=== PATIENT | male | born 1970 | race Caucasian/White ===

== ENCOUNTER 2019-11-27 06:00 | Emergency (ER) | payer OTHER, SELFPAY ==
[2019-11-27 06:04] VITALS: BP 175/106; PULSE 77; RESP 22; TEMP 36.8; O2SAT 97
--- NOTE | 2019-11-27 06:05 | ED.GENADULT ---
HPI - General Adult General Chief complaint: Nausea/Vomiting/Diarrhea <Alissa Mark MD - Last Filed: 11/27/19 07:02> Stated complaint: n/v <Alissa Mark MD - Last Filed: 11/27/19 07:02> Time Seen by Provider: 11/27/19 06:05 <Alissa Mark MD - Last Filed: 11/27/19 07:02> Source: patient <Alissa Mark MD - Last Filed: 11/27/19 07:02> Mode of arrival: ambulatory <Alissa Mark MD - Last Filed: 11/27/19 07:02> Limitations: no limitations <Alissa Mark MD - Last Filed: 11/27/19 07:02> History of Present Illness HPI narrative: Patient is a 49-year-old male who presents for evaluation of nausea and vomiting. Patient reports he has had a 24-hour history of worsening nausea with numerous episodes of nonbloody, nonbilious emesis throughout the day yesterday and into tonight. Patient has been unable to tolerate any oral intake for 24 hours. He reports chills without fever. He reports myalgias. He reports diffuse, mild abdominal pain that is not specifically worse in any area of the abdomen. He denies diarrhea, states that he has been mildly constipated. No abdominal distention. Patient reports he has a history of this, states he becomes severely dehydrated about twice a year pretty regularly. He has Zofran at home, but has been unable to tolerate oral intake despite taking the dissolvable Zofran tablets. No sick contacts at home. Patient has been working, but is isolated from sick contacts and has almost no daily contacts at work. <Alissa Mark MD - Last Filed: 11/27/19 07:02> Related Data Allergies/adverse reactions: Allergies Allergy/AdvReac Type Severity Reaction Status Date / Time No Known Allergies Allergy Unverified 06/05/19 23:24 <Alissa Mark MD - Last Filed: 11/27/19 07:02> Review of Systems Review of Systems: Narrative: CONSTITUTIONAL: Denies fever, chills, or sweats. EYES: Denies visual changes, redness, or discharge. ENT: Denies rhinorrhea, congestion, sore throat, or otalgia. CARDIOVASCULAR: Denies chest pain, palpitations, or edema. RESPIRATORY: Denies cough or dyspnea. GASTROINTESTINAL: Reports abdominal pain, nausea, and vomiting, denies diarrhea GENITOURINARY: Denies dysuria or hematuria. SKIN: Denies rash or itching. MUSCULOSKELETAL: Denies back pain, joint pain, or myalgia. NEUROLOGIC: Reports mild headache, denies numbness, reports feeling mildly weak, no focal weakness <Alissa Mark MD - Last Filed: 11/27/19 07:02> [facility] Past Medical History Medical History: Medical History (Updated 11/27/19 @ 07:02 by Alissa Mark MD) Gout Osteoarthritis <Alissa Mark MD - Last Filed: 11/27/19 07:02> Surgical History Surgical History: Surgical History (Updated 11/27/19 @ 06:18 by Alissa Mark MD) H/O arthroscopic knee surgery <Alissa Mark MD - Last Filed: 11/27/19 07:02> Social History Social History: Social History (Updated 11/27/19 @ 06:21 by Alissa Mark MD) Smoking status: Former smoker Alcohol intake: never Substance use: never Living arrangements: with family Gender identity (if verbalized by the patient): Male <Alissa Mark MD - Last Filed: 11/27/19 07:02> Exam Narrative: Exam Narrative: GENERAL: Awake, alert, conversant HEAD: Normocephalic, atraumatic. EYES: PERRLA and EOMI. ENT: Nares clear, no rhinorrhea or epistaxis. Mucous membranes dry NECK: Supple. CHEST: No respiratory distress, breathing even and non labored HEART: Regular rate, sinus rhythm ABDOMEN:Non distended, mild tenderness throughout the abdomen, nonrigid, no guarding, no rebound EXTREMITIES: Normal range of motion. No edema. SKIN: Warm, dry, no rash. NEURO:No focal deficits. Alert and oriented x3 <Alissa Mark MD - Last Filed: 11/27/19 07:02> Course Course Emergency Course: Patient presented for evaluation of intractable nausea and vomiting which he has had in
[2019-11-27] MEDS: SODIUM CHLORIDE 0.9% IV 1,000 ML 999 ML IV CONT ×2 (06:26→06:36)
[2019-11-27 06:28] LABS: Basophils Percent Auto 0.1 % (0.2-1.2); Hematocrit 46.8 % (42.0-52.0); Hemoglobin 16.5 g/dL (14.0-18.0); Immature Granulocyte Absolute 0.02 K/mm3 (0.00-0.031); Immature Granulocyte Percent A 0.2 % (0-0.5); Lymphocytes Absolute Auto 0.75 K/mm3 (0.9-3.2); Mean Corpuscular HGB Conc 35.3 g/dl (32-36); Mean Corpuscular Hemoglobin 31.3 pg (26-34); Mean Corpuscular Volume 88.6 fl (80-100); Mean Platelet Volume 10.7 fl (7.4-10.4); Monocytes Absolute Auto 0.3 K/mm3 (0.1-0.6); Monocytes Percent Auto 3.7 % (2.6-8.5); Neutrophils Absolute Auto 7.3 K/mm3 (1.3-6.7); Platelet Count Result 242 k/mm3 (150-375); Red Blood Count 5.28 M/mm3 (4.6-6.20); Red Cell Distribution Width 12.2 % (11.5-14.5); White Blood Count 8.4 K/mm3 (4.5-10.0)
[2019-11-27] MEDS: METOCLOPRAMIDE HCL INJ 10 MG/2 ML VIAL IV PUSH (06:28)
[2019-11-27 06:40] LABS: Alanine Aminotransferase 17 U/L (4-50); Albumin Level 4.8 g/dL (3.5-5.1); Alkaline Phosphatase 101 U/L (38-126); Aspartate Amino Transferase 25 U/L (17-59); Blood Urea Nitrogen 24 mg/dL (9-20); Calcium 9.7 mg/dL (8.4-10.2); Carbon Dioxide 29 mmol/L (22-30); Chloride 98 mmol/L (98-107); Estimated CRCL calculation 78 ml/min; Estimated Glomerular Filt Rate > 60; Glucose 130 mg/dL (75-110); Lipase 432 U/L (23-300); Potassium 3.9 mmol/L (3.4-5.0); Sodium 136 mmol/L (137-145)
[2019-11-27 07:01] VITALS: BP 139/71; PULSE 71; RESP 17; O2SAT 97
--- NOTE | 2019-11-27 07:07 | PC.NURSE ---
Assumed pt care from MARY Roberto at this time, pt resting in bed, call light at bedside, A&OX3, VSS in no aparent distress. Pt reminded of need for urine sample, refusing cath at this time, urinal placed on bed rail.
[2019-11-27 07:27] LABS: Add Urine Microscopic? YES; Appearance Urine Clear (Clear); Bacteria Urine Trace /hpf; Bilirubin Urine 1+ (Negative); Blood Urine Negative (Negative); Color Urine Yellow (Yellow); Glucose Urine UA Negative (Negative); Hyaline Casts Urine 30-49 /lpf; Ketones Urine 1+ mg/dL (Negative); Leukocyte Esterase Ur Negative LEU/UL (Negative); Mucus Urine Heavy /lpf; Nitrate Urine Negative (Negative); Protein Urine 2+ mg/dL (Negative); Squamous Epithelial Cell Urine Rare /hpf (Few); Urobilinogen Urine Negative mg/dL (<2.0)
[2019-11-27 07:28] LABS: Specific Grav Ur 1.036 (1.001-1.035)
--- NOTE | 2019-11-27 07:49 | PC.NURSE ---
pt provided with applesauce and sprite for po challenge at the request of PANCHO Duke. Pt states that he is feeling better and is no longer nauseated.
--- NOTE | 2019-11-27 08:04 | PC.NURSE ---
Rounded on pt, he states that he is feeling better, denies any nausea after eating some applesauce and a light soda. ERP Srikanth aware. No new orders. ERP at pt bedside at this time for pt update.
[2019-11-27 08:05] VITALS: BP 150/94; PULSE 75; RESP 18; O2SAT 100
[2019-11-27 08:15] VITALS: BP 150/94; PULSE 78; RESP 16; O2SAT 100
== END 2019-11-27 08:16 | disposition home or self-care (01) ==
PROVIDERS: Emergency Medicine; Emergency Provider Emergency Medicine; PCP Internal Medicine
DX: R11.2 Nausea with vomiting, unspecified (principal); E86.0 Dehydration; M10.9 Gout, unspecified; M19.90 Unspecified osteoarthritis, unspecified site; Z87.891 Personal history of nicotine dependence
CPT/HCPCS: 36415; 80053; 81001; 83690; 85025; 87086; 96361; 96374; 96375; 99284; J0131; J2765; J7030

== ENCOUNTER 2020-10-12 23:48 | Emergency (ER) | payer OTHER, SELFPAY ==
[2020-10-12 23:51] VITALS: BP 191/98; PULSE 94; RESP 18; TEMP 36.9; O2SAT 97
--- NOTE | 2020-10-13 00:11 | PC.NURSE ---
pt states he isnt able to urinate at this time.
[2020-10-13 00:15] LABS: Basophils Percent Auto 0.1 % (0.2-1.2); Hematocrit 44.6 % (42.0-52.0); Hemoglobin 15.6 g/dL (14.0-18.0); Immature Granulocyte Absolute 0.02 K/mm3 (0.00-0.031); Immature Granulocyte Percent A 0.2 % (0-0.5); Lymphocytes Absolute Auto 0.57 K/mm3 (0.9-3.2); Lymphocytes Percent Auto 6.9 % (18.3-44.2); Mean Corpuscular Hemoglobin 31.3 pg (26-34); Mean Corpuscular Volume 89.4 fl (80-100); Mean Platelet Volume 10.3 fl (7.4-10.4); Monocytes Absolute Auto 0.2 K/mm3 (0.1-0.6); Neutrophils Absolute Auto 7.5 K/mm3 (1.3-6.7); Neutrophils Percent Auto 90.8 % (45.5-73.1); Platelet Count Result 243 k/mm3 (150-375); Red Blood Count 4.99 M/mm3 (4.6-6.20); White Blood Count 8.3 K/mm3 (4.5-10.0)
[2020-10-13 00:26] LABS: Alanine Aminotransferase 23 U/L (4-50); Albumin Level 4.5 g/dL (3.5-5.1); Alkaline Phosphatase 101 U/L (38-126); Anion Gap 7 mmol/L (8-16); Aspartate Amino Transferase 29 U/L (17-59); Bilirubin,Total 0.7 mg/dL (0.2-1.3); Blood Urea Nitrogen 17 mg/dL (9-20); Calcium 9.1 mg/dL (8.4-10.2); Carbon Dioxide 28 mmol/L (22-30); Chloride 103 mmol/L (98-107); Estimated CRCL calculation 94 ml/min; Estimated Glomerular Filt Rate > 60; Glucose 134 mg/dL (75-110); Lipase 28 U/L (23-300); Potassium 3.8 mmol/L (3.4-5.0); Sodium 138 mmol/L (137-145)
--- NOTE | 2020-10-13 00:47 | ED.GENADULT ---
HPI - General Adult General Chief complaint: Nausea/Vomiting/Diarrhea Stated complaint: dehydration Time Seen by Provider: 10/13/20 00:33 Source: RN notes reviewed History of Present Illness HPI narrative: Patient presents emergency department from home for nausea vomiting. States symptoms began approximately noon today with numerous episodes of nausea and vomiting. Patient states he does have a history of this and took a Zofran at home with last dose around 4 with no relief he states he has diffuse abdominal cramping denies any fevers or chills chest pain shortness of breath diarrhea or any other symptoms of concern Related Data Allergies Allergy/AdvReac Type Severity Reaction Status Date / Time No Known Allergies Allergy Unverified 06/05/19 23:24 Review of Systems Review of Systems: Narrative: Gen.: Denies fevers or chills ENT: Denies congestion Respiratory: Denies shortness of breath or cough CV: Denies chest pain GI: See HPI denies burning, urgency, frequency or hematuria Musculoskeletal: Denies back pain or muscle pain Neuro: Denies numbness, tingling, weakness or focal weakness Skin: Denies rash Except as documented, all other systems reviewed and negative PMFSH Past Medical History Medical History Gout Osteoarthritis Surgical History Surgical History (Updated 11/27/19 @ 06:18 by Alissa Mark MD) H/O arthroscopic knee surgery Social History Social History Smoking status: Former smoker Alcohol intake: never Substance use: never Gender identity (if verbalized by the patient): Male Exam Narrative: Exam Narrative: APPEARANCE: No acute distress, nontoxic, resting in bed HEENT: Normocephalic, atraumatic, OMM RESPIRATORY: No respiratory distress, clear to auscultation bilaterally with no rhonchi wheezing or rales CARDIOVASCULAR: RRR s murmur ABDOMINAL: Soft nondistended diffusely tender palpation no rebound or guarding MUSCULOSKELETAl: Moves all extremities. No clubbing, cyanosis or edema. NEURO: Awake and alert. Following commands, speech normal, no focal deficits SKIN:: Warm, dry. Normal Color PSYCHIATRIC: Normal affect/mood Course Course Emergency Course: Discussed with the patient he states he does have episodes approximately every for several months of nausea vomiting Xarelto full GI work-up states he does smoke marijuana daily discussed with him marijuana use could be related to this and will refer to GI for further work-up Patient feeling much better able to eat and drink in ED with no emesis Patient states that they are feeling much better at this time. States abdominal pain has resolved. Repeat abdominal exam shows the patient's abdomen to be soft and nontender. Discussed with patient results of workup and diagnosis. Discussed need for follow-up with primary care physician, reasons to return to the emergency department in proper use of medication. Patient understands and agrees to current treatment plan. Patient states he has Zofran at home Vital Signs Vital signs: Vital Signs Temperature 98.4 F 10/12/20 23:51 Pulse Rate 94 10/12/20 23:51 Respiratory Rate 18 10/12/20 23:51 Blood Pressure 191/98 H 10/12/20 23:51 Pulse Oximetry 97 10/12/20 23:51 Temperature 98.4 F 10/12/20 23:51 Pulse Rate 89 10/13/20 02:49 Respiratory Rate 18 10/13/20 02:49 Blood Pressure 156/84 H 10/13/20 02:49 Pulse Oximetry 98 10/13/20 02:49 Medical Decision Making MDM Narrative Medical decision making narrative: Patient's abdomen is soft without significant pain or signs of surgical abdomen on serial exams. Lab and x-ray evaluations are reviewed and patient is felt to be a reasonable candidate for outpatient management. Patient was instructed as to limitations of x-ray and laboratory evaluation and encouraged to return to ED or primary physician for repeat exam in
[2020-10-13] MEDS: SODIUM CHLORIDE 0.9% IV 1,000 ML 999 ML IV CONT ×2 (01:20→01:23)
[2020-10-13] MEDS: ONDANSETRON INJ 4 MG/2 ML VIAL IV PUSH (01:22)
[2020-10-13] MEDS: FAMOTIDINE 20 MG/2 ML VIAL IV PUSH (01:22)
[2020-10-13 01:24] VITALS: BP 171/105; PULSE 83; RESP 99; O2SAT 98
[2020-10-13 02:49] VITALS: BP 156/84; PULSE 89; RESP 18; O2SAT 98
[2020-10-13 03:40] LABS: Add Urine Microscopic? YES; Appearance Urine Clear (Clear); Bacteria Urine Trace /hpf; Bilirubin Urine Negative (Negative); Blood Urine Negative (Negative); Color Urine Yellow (Yellow); Glucose Urine UA Negative (Negative); Ketones Urine Negative (Negative); Leukocyte Esterase Ur Negative LEU/UL (Negative); Mucus Urine Few /lpf; Nitrate Urine Negative (Negative); Protein Urine 1+ mg/dL (Negative); Specific Grav Ur 1.024 (1.001-1.035); Urobilinogen Urine Negative mg/dL (<2.0)
[2020-10-13 03:51] VITALS: BP 155/81; PULSE 79; RESP 18; O2SAT 98
== END 2020-10-13 03:56 | disposition home or self-care (01) ==
PROVIDERS: Emergency Provider Emergency Medicine; PCP Internal Medicine
DX: R11.2 Nausea with vomiting, unspecified (principal); R10.9 Unspecified abdominal pain; M10.9 Gout, unspecified; M19.90 Unspecified osteoarthritis, unspecified site; Z87.891 Personal history of nicotine dependence
CPT/HCPCS: 36415; 80053; 81001; 83690; 85025; 96365; 96375; 99284; J0131; J2405; J7030

== ENCOUNTER 2020-10-20 22:22 | Emergency (ER) | payer OTHER, SELFPAY ==
--- NOTE | ~2020-10-20 | CT_ITS ---
EXAMINATION: CT abdomen pelvis wo con DATE: 10/21/2020 01:28 INDICATION: Left flank pain TECHNIQUE: Computed tomography (CT) of the abdomen and pelvis was performed without intravenous contr ast. The dose-length product was 501.76 mGy-cm. Automated exposure control and iterative reconstructi on technique were employed. COMPARISON: CT dated 06/06/2019 FINDINGS: Heart size is normal. No significant pleural or pericardial effusion. No significant vascul ar abnormality. No lymphadenopathy. Colonic diverticulosis without evidence for diverticulitis. The liver, spleen, pancreas, adrenal glands and kidneys are unremarkable. Nonobstructive bowel gas pa ttern. No free air or free fluid. Mild lumbar spondylosis. Levoscoliosis. No acute osseous abnormalit y. IMPRESSION: 1. No acute abdominal abnormality. Reviewed, dictated and finalized at [facility].
[2020-10-20 22:27] VITALS: BP 171/112; PULSE 88; RESP 16; TEMP 36.6; O2SAT 99
[2020-10-20 22:40] LABS: Basophils Percent Auto 0.2 % (0.2-1.2); Eosinophils Percent Auto 0.2 % (0-4.4); Hematocrit 45.5 % (42.0-52.0); Hemoglobin 16.2 g/dL (14.0-18.0); Immature Granulocyte Absolute 0.03 K/mm3 (0.00-0.031); Immature Granulocyte Percent A 0.3 % (0-0.5); Lymphocytes Absolute Auto 0.72 K/mm3 (0.9-3.2); Lymphocytes Percent Auto 8.2 % (18.3-44.2); Mean Corpuscular HGB Conc 35.6 g/dl (32-36); Mean Corpuscular Hemoglobin 31.8 pg (26-34); Mean Corpuscular Volume 89.2 fl (80-100); Mean Platelet Volume 10.2 fl (7.4-10.4); Monocytes Absolute Auto 0.3 K/mm3 (0.1-0.6); Neutrophils Absolute Auto 7.8 K/mm3 (1.3-6.7); Neutrophils Percent Auto 88.1 % (45.5-73.1); Platelet Count Result 236 k/mm3 (150-375); Red Cell Distribution Width 11.9 % (11.5-14.5); White Blood Count 8.8 K/mm3 (4.5-10.0)
[2020-10-20 22:53] LABS: Anion Gap 10 mmol/L (8-16); Blood Urea Nitrogen 18 mg/dL (9-20); Calcium 9.3 mg/dL (8.4-10.2); Carbon Dioxide 24 mmol/L (22-30); Chloride 103 mmol/L (98-107); Estimated CRCL calculation 104 ml/min; Estimated Glomerular Filt Rate > 60; Glucose 127 mg/dL (75-110); Potassium 3.5 mmol/L (3.4-5.0); Sodium 137 mmol/L (137-145)
[2020-10-21 00:47] VITALS: BP 170/113; PULSE 71; RESP 16; TEMP 36.7; O2SAT 100
[2020-10-21] MEDS: SODIUM CHLORIDE 0.9% IV 1,000 ML 150 ML IV CONT (01:15)
[2020-10-21] MEDS: MORPHINE SULFATE (*CRX) 4 MG/ML INJ IV PUSH (01:16)
[2020-10-21] MEDS: ONDANSETRON INJ 4 MG/2 ML VIAL IV PUSH (01:16)
[2020-10-21 02:24] LABS: Add Urine Microscopic? YES; Appearance Urine Cloudy (Clear); Bacteria Urine Trace /hpf; Bilirubin Urine Negative (Negative); Blood Urine Negative (Negative); Color Urine Yellow (Yellow); Glucose Urine UA Negative (Negative); Ketones Urine 2+ mg/dL (Negative); Leukocyte Esterase Ur Negative LEU/UL (Negative); Mucus Urine Heavy /lpf; Nitrate Urine Negative (Negative); Protein Urine 1+ mg/dL (Negative); Squamous Epithelial Cell Urine Rare /hpf (Few); Urobilinogen Urine Negative mg/dL (<2.0); WBC Urine 0-3 /hpf
--- NOTE | 2020-10-21 02:24 | ED.ABDPAIN ---
HPI - Abdominal Pain General Chief Complaint: Urogenital-Male Stated Complaint: left lower back pain-vomiting Time Seen by Provider: 10/21/20 00:46 Source: patient Mode of arrival: ambulatory Limitations: no limitations History of Present Illness HPI narrative: 50-year-old with no major medical problems here with complaints of left flank pain radiating into his left lower abdomen for past few days. Patient states that pain got intense this evening and also he complains of nausea and vomiting. He denies any urinary symptoms. Denies any fever or chills. No previous history of kidney stones or kidney infections. MD elicited complaint: abdominal pain and flank pain Pertinent past history: none Onset (ago): day(s) (2) Pain Consistency: constant Location: suprapubic Severity: moderate Quality: aching Radiation: L flank Migration to: LLQ and suprapubic Exacerbating factors: nothing Relieving factors: nothing Related Data Allergies Allergy/AdvReac Type Severity Reaction Status Date / Time No Known Allergies Allergy Verified 10/20/20 22:24 Review of Systems Review of Systems: All systems reviewed & are unremarkable except as noted in HPI and below Constitutional: Constitutional: Reports no additional constitutional complaints Eyes: Eyes: Reports no additional eye complaints ENT: Reports system reviewed and no additional complaints, except as documented Cardiovascular: Cardiovascular: Reports no additional cardiovascular complaints Respiratory: Respiratory: Reports no additional respiratory complaints Gastrointestinal: Gastrointestinal: Reports as per HPI Musculoskeletal: Musculoskeletal: Reports no additional musculoskeletal complaints PMFSH Past Medical History Medical History Gout Osteoarthritis Surgical History Surgical History H/O arthroscopic knee surgery Social History Social History Smoking status: Former smoker Alcohol intake: never Substance use: never Gender identity (if verbalized by the patient): Male Exam Narrative: Exam Narrative: GENERAL: Well-appearing, well-nourished, and in no acute distress. HEAD: Normocephalic, atraumatic. EYES: PERRLA and EOMI. NECK: Supple. CHEST: Clear to auscultation. No respiratory distress. HEART: Regular rate and rhythm. No murmur heard. Normal peripheral pulses. ABDOMEN: Soft, mild suprapubic tenderness , nondistended, normal active bowel sounds. EXTREMITIES: Normal range of motion. No edema. SKIN: Warm, dry, no rash. NEURO: No focal deficits. Alert and oriented x3. PSYCH: Normal mood and affect. Course Course Emergency Course: Patient rested well after pain medication and Zofran. I discussed lab work and CT findings with the patient. Advised him to take pain medication as needed. Vital Signs Vital signs: Vital Signs Temperature 36.6 C 10/20/20 22:27 Pulse Rate 88 10/20/20 22:27 Respiratory Rate 16 10/20/20 22:27 Blood Pressure 171/112 H 10/20/20 22:27 Pulse Oximetry 99 10/20/20 22:27 Temperature 36.7 C 10/21/20 00:47 Pulse Rate 71 10/21/20 00:47 Respiratory Rate 16 10/21/20 00:47 Blood Pressure 170/113 H 10/21/20 00:47 Pulse Oximetry 100 10/21/20 00:47 MDM - Abdominal Pain Lab Data Result diagrams: 10/20/20 22:34 10/20/20 22:34 Labs: Lab Results 10/20/20 10/20/20 10/21/20 Range/Units 22:34 22:34 02:07 WBC 8.8 (4.5-10.0) K/mm3 RBC 5.10 (4.6-6.20) M/mm3 Hgb 16.2 (14.0-18.0) g/dL Hct 45.5 (42.0-52.0) % MCV 89.2 (80-100) fl MCH 31.8 (26-34) pg MCHC 35.6 (32-36) g/dl RDW 11.9 (11.5-14.5) % Plt Count 236 (150-375) k/mm3 MPV 10.2 (7.4-10.4) fl Immature Gran % (Auto) 0.3 (0-0.5) % Neut % (Auto) 88.1 H (45.5-73.1) % Lymph % (Auto) 8.2 L (18.3-44.2)
[2020-10-21] MEDS: SODIUM CHLORIDE 0.9% IV 1,000 ML 999 ML IV CONT (02:42)
[2020-10-21 02:46] VITALS: BP 144/94; PULSE 78; RESP 16; TEMP 37; O2SAT 99
[2020-10-21 03:22] VITALS: BP 150/91; PULSE 60; RESP 16; TEMP 36.6; O2SAT 100
== END 2020-10-21 03:24 | disposition home or self-care (01) ==
PROVIDERS: Emergency Provider Family Medicine; PCP Internal Medicine
DX: R10.32 Left lower quadrant pain (principal); M10.9 Gout, unspecified; M19.90 Unspecified osteoarthritis, unspecified site; Z87.891 Personal history of nicotine dependence
CPT/HCPCS: 36415; 74176; 80048; 81001; 85025; 96361; 96374; 96375; 99284; J2270; J2405; J7030

== ENCOUNTER 2022-06-17 21:22 | Emergency (ER) | payer OTHER, SELFPAY ==
--- NOTE | ~2022-06-17 | CT_ITS ---
EXAMINATION: CT abdomen pelvis w con DATE: 06/18/2022 00:53 INDICATION: Abdominal cramping TECHNIQUE: Computed tomography (CT) of the abdomen and pelvis was performed with 100 CC Omnipaque 350 intravenous contrast. Automated exposure control and iterative reconstruction technique were employe d. Exam dose: 373.96 mGy-cm total exam DLP. COMPARISON: 10/21/2020 CT abdomen pelvis FINDINGS: The lung bases are clear. Normal heart size. No pericardial or pleural effusion. Small sliding hiatal hernia. The liver, gallbladder, bile ducts, pancreas, pancreatic duct, spleen, and adrenal glands and kidneys are unremarkable. Normal caliber of the abdominal aorta. No intraperitoneal or retroperitoneal or pelvic mass lesion or adenopathy or ascites. The urinary bladder and prostate gland are unremarkable. No bowel obstruction, bowel wall thickening, pneumatosis or intraperitoneal free air is detected. No evidence of appendicitis. 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 Mildly sever e degenerative disease at L4-5. There is mild lumbar levoscoliosis. No suspicious osteolytic or osteoblastic lesions are noted. IMPRESSION: Normal appendix Small sliding hiatal hernia Reviewed, dictated and finalized at [facility]. Reviewed, dictated and finalized at location [facility]. [employer]
[2022-06-17 21:27] VITALS: BP 178/90; PULSE 77; RESP 20; TEMP 36.9; O2SAT 100
--- NOTE | 2022-06-17 21:40 | ED.NAVMDI ---
HPI - Nausea/Vomiting/Diarrhea General Chief complaint: Nausea/Vomiting/Diarrhea Stated complaint: abd pain Time Seen by Provider: 06/17/22 21:30 Source: RN notes reviewed History of Present Illness HPI Narrative: Patient presents emergency department from home for abdominal pain. Patient symptoms began this morning. States he has abdominal pain across his mid abdomen described as cramping in nature. States has been associated with nausea and dry heaving as well as diarrhea. Denies having any fevers or chills denies any chest pain or shortness of breath. States he does have a history of recurrent abdominal issues similar episodes occurring every 2 to 3 months states he said no formal work-up for these issues before in the past has been seen in the emergency department Related Data Allergies Allergy/AdvReac Type Severity Reaction Status Date / Time No Known Allergies Allergy Verified 10/20/20 22:24 Review of Systems Review of Systems: Gen.: Denies fevers or chills ENT: Denies congestion Respiratory: Denies shortness of breath or cough CV: Denies chest pain or palpitations GI: See HPI Musculoskeletal: Denies back pain or muscle pain Neuro: Denies numbness, tingling, weakness or focal weakness Skin: Denies rash Except as documented, all other systems reviewed and negative PMFSH Past Medical History Medical History Gout Osteoarthritis Surgical History Surgical History H/O arthroscopic knee surgery Social History Social History Smoking status: Former smoker Alcohol intake: never Substance use: never Gender identity (if verbalized by the patient): Male Exam Narrative: APPEARANCE: No acute distress, nontoxic, resting in bed HEENT: Normocephalic, atraumatic, OMM RESPIRATORY: No respiratory distress, clear to auscultation bilaterally with no rhonchi wheezing or rales CARDIOVASCULAR: RRR s murmur ABDOMINAL: Soft nondistended diffusely tender to palpation no rebound or guarding MUSCULOSKELETAl: Moves all extremities. No clubbing, cyanosis or edema. NEURO: Awake and alert. Following commands, speech normal, no focal deficits SKIN:: Warm, dry. Normal Color PSYCHIATRIC: Normal affect/mood Course Course Emergency Course: Reviewed old records Patient states he is feeling better this time able to drink in ED with no emesis Patient states that they are feeling much better at this time. States abdominal pain has improved. Repeat abdominal exam shows the patient's abdomen to be soft with no surgical abdomen present discussed with patient results of workup and diagnosis. Discussed need for follow-up with primary care physician, reasons to return to the emergency department in proper use of medication. Patient understands and agrees to current treatment plan Vital Signs Vital signs: Vital Signs Temperature 98.5 F 06/17/22 21:27 Pulse Rate 77 06/17/22 21:27 Respiratory Rate 20 06/17/22 21:27 Blood Pressure 178/90 H 06/17/22 21:27 Pulse Oximetry 100 06/17/22 21:27 Oxygen Delivery Room Air 06/17/22 21:27 Temperature 98.5 F 06/17/22 21:27 Pulse Rate 77 06/17/22 21:27 Respiratory Rate 20 06/17/22 21:27 Blood Pressure 178/90 H 06/17/22 21:27 Pulse Oximetry 100 06/17/22 21:27 Oxygen Delivery Room Air 06/17/22 21:27 MDM - Nausea/Vomiting/Diarrhea MDM Narrative Medical decision making narrative: Patient's abdomen is soft without significant pain or signs of surgical abdomen on serial exams. Lab and x-ray evaluations are reviewed and patient is felt to be a reasonable candidate for outpatient management. Patient was instructed as to limitations of x-ray and laboratory evaluation and encouraged to return to ED or primary physician for repeat exam in 12 hours if continued or worsening pain Lab Data Result diagrams:
[2022-06-17 22:08] LABS: Basophils Percent Auto 0.1 % (0.2-1.2); Hematocrit 43.8 % (42.0-52.0); Hemoglobin 15.2 g/dL (14.0-18.0); Immature Granulocyte Absolute 0.02 K/mm3 (0.00-0.031); Immature Granulocyte Percent A 0.2 % (0-0.5); Lymphocytes Absolute Auto 0.55 K/mm3 (0.9-3.2); Lymphocytes Percent Auto 6.1 % (18.3-44.2); Mean Corpuscular HGB Conc 34.7 g/dl (32-36); Mean Corpuscular Hemoglobin 31.5 pg (26-34); Mean Corpuscular Volume 90.9 fl (80-100); Mean Platelet Volume 9.9 fl (7.4-10.4); Monocytes Absolute Auto 0.2 K/mm3 (0.1-0.6); Monocytes Percent Auto 1.7 % (2.6-8.5); Neutrophils Absolute Auto 8.3 K/mm3 (1.3-6.7); Neutrophils Percent Auto 91.9 % (45.5-73.1); Platelet Count Result 231 k/mm3 (150-375); Red Blood Count 4.82 M/mm3 (4.6-6.20)
[2022-06-17] MEDS: FAMOTIDINE 20 MG/2 ML VIAL IV PUSH (22:10)
[2022-06-17] MEDS: ONDANSETRON INJ 4 MG/2 ML VIAL IV PUSH (22:11)
[2022-06-17] MEDS: SODIUM CHLORIDE 0.9% IV 1,000 ML 999 ML IV CONT ×2 (22:11)
[2022-06-17 22:16] LABS: Alanine Aminotransferase 24 U/L (6-50); Albumin Level 4.5 g/dL (3.5-5.1); Alkaline Phosphatase 97 U/L (38-126); Anion Gap 10 mmol/L (8-16); Aspartate Amino Transferase 30 U/L (17-59); Bilirubin,Total 0.8 mg/dL (0.2-1.3); Blood Urea Nitrogen 16 mg/dL (9-20); Carbon Dioxide 26 mmol/L (22-30); Chloride 102 mmol/L (98-107); Estimated CRCL calculation 92 ml/min; Estimated Glomerular Filt Rate > 60; Glucose 154 mg/dL (65-110); Lipase 21 U/L (23-300); Potassium 3.8 mmol/L (3.4-5.0); Sodium 138 mmol/L (137-145)
[2022-06-17 23:11] LABS: Appearance Urine Clear (Clear); Bilirubin Urine 1+ (Negative); Blood Urine Trace-lysed (Negative); Color Urine Yellow (Yellow); Glucose Urine UA Negative (Negative); Ketones Urine 2+ mg/dL (Negative); Leukocyte Esterase Ur Negative LEU/UL (Negative); Nitrate Urine Negative (Negative); Protein Urine 1+ mg/dL (Negative); Specific Grav Ur 1.025 (1.001-1.035); Urobilinogen Urine 0.2 mg/dL (<2.0)
[2022-06-17 23:21] LABS: Mucus Urine Few /lpf; Squamous Epithelial Cell Urine Rare /hpf (Few); WBC Urine 0-3 /hpf
[2022-06-17 23:26] LABS: Add Urine Microscopic? YES
[2022-06-18] MEDS: MORPHINE SULFATE (*CRX) 2 MG/ML INJ IV PUSH (00:28)
[2022-06-18] MEDS: PROMETHAZINE HCL 25 MG/ML AMPUL 12.5 MG IV PUSH (00:28)
[2022-06-18] MEDS: SODIUM CHLORIDE 0.9% IV 100 ML 400 ML IVPB (00:31)
[2022-06-18 02:55] VITALS: BP 154/78; PULSE 78; RESP 18; O2SAT 99
== END 2022-06-18 02:48 | disposition home or self-care (01) ==
PROVIDERS: Emergency Provider Emergency Medicine; PCP Internal Medicine
DX: R10.9 Unspecified abdominal pain (principal); R11.2 Nausea with vomiting, unspecified; M19.90 Unspecified osteoarthritis, unspecified site; M10.9 Gout, unspecified; Z87.891 Personal history of nicotine dependence; K44.9 Diaphragmatic hernia without obstruction or gangrene
CPT/HCPCS: 36415; 74177; 80053; 81001; 83690; 85025; 96361; 96365; 96374; 96375; 99284; J0131; J2270; J2405; J2550; J7030; Q9967

== ENCOUNTER 2022-08-18 14:28 | Emergency (ER) | payer OTHER, SELFPAY ==
[2022-08-18 14:35] VITALS: BP 164/102; PULSE 72; RESP 16; TEMP 36.2; O2SAT 100
[2022-08-18 14:57] LABS: Basophils Percent Auto 0.1 % (0.2-1.2); Eosinophils Percent Auto 0.1 % (0-4.4); Hematocrit 45.8 % (42.0-52.0); Hemoglobin 15.7 g/dL (14.0-18.0); Immature Granulocyte Absolute 0.02 K/mm3 (0.00-0.031); Immature Granulocyte Percent A 0.3 % (0-0.5); Lymphocytes Absolute Auto 0.41 K/mm3 (0.9-3.2); Mean Corpuscular HGB Conc 34.3 g/dl (32-36); Mean Corpuscular Hemoglobin 31.3 pg (26-34); Mean Corpuscular Volume 91.4 fl (80-100); Mean Platelet Volume 10.1 fl (7.4-10.4); Monocytes Absolute Auto 0.2 K/mm3 (0.1-0.6); Monocytes Percent Auto 3.2 % (2.6-8.5); Neutrophils Absolute Auto 6.1 K/mm3 (1.3-6.7); Neutrophils Percent Auto 90.3 % (45.5-73.1); Platelet Count Result 206 k/mm3 (150-375); Red Blood Count 5.01 M/mm3 (4.6-6.20); Red Cell Distribution Width 12.4 % (11.5-14.5); White Blood Count 6.8 K/mm3 (4.5-10.0)
[2022-08-18 15:03] VITALS: BP 155/91; BP 176/103; PULSE 67; PULSE 68
[2022-08-18 15:04] VITALS: BP 168/107; PULSE 76
[2022-08-18 15:05] LABS: Alanine Aminotransferase 22 U/L (6-50); Albumin Level 4.3 g/dL (3.5-5.1); Alkaline Phosphatase 130 U/L (38-126); Anion Gap 7 mmol/L (8-16); Aspartate Amino Transferase 29 U/L (17-59); Blood Urea Nitrogen 13 mg/dL (9-20); Calcium 8.6 mg/dL (8.4-10.2); Carbon Dioxide 28 mmol/L (22-30); Chloride 102 mmol/L (98-107); Estimated CRCL calculation 90 ml/min; Estimated Glomerular Filt Rate > 60; Glucose 136 mg/dL (65-110); Lipase 50 U/L (23-300); Potassium 3.5 mmol/L (3.4-5.0); Sodium 137 mmol/L (137-145)
--- NOTE | 2022-08-18 15:12 | ED.GENADULT ---
HPI - General Adult General Chief complaint: Nausea/Vomiting/Diarrhea Stated complaint: nausea Time Seen by Provider: 08/18/22 14:48 History of Present Illness HPI narrative: 52-year-old male presented to the emergency department for evaluation of increased nausea. Patient states he has frequent cyclic nausea. Patient reports he does had follow-up with GI and had a colonoscopy and EGD done approximately week ago and was told that everything looked fine. Patient reports he did take some Zofran at home with no significant improvement. Patient denies any associate abdominal pain with this Patient does admit to smoking marijuana daily Related Data Allergies Allergy/AdvReac Type Severity Reaction Status Date / Time No Known Allergies Allergy Verified 08/18/22 14:44 Review of Systems Review of Systems: CONSTITUTIONAL: Denies fever, chills, or sweats. EYES: Denies visual changes, redness, or discharge. ENT: Denies rhinorrhea, congestion, sore throat, or otalgia. CARDIOVASCULAR: Denies chest pain, palpitations, or edema. RESPIRATORY: Denies cough or dyspnea. GASTROINTESTINAL: See HPI GENITOURINARY: Denies dysuria or hematuria. SKIN: Denies rash or itching. MUSCULOSKELETAL: Denies back pain, joint pain, or myalgia. NEUROLOGIC: Denies headache, numbness, or weakness. [facility] Past Medical History Medical History Gout Osteoarthritis Surgical History Surgical History H/O arthroscopic knee surgery Social History Social History Smoking status: Former smoker Alcohol intake: never Substance use: never Living arrangements: with family Gender identity (if verbalized by the patient): Male Exam Narrative: APPEARANCE: Well appearing, no pain, no distress, well-nourished. HEAD: normocephalic, atraumatic. EYES: PERRLA/EOMI, conjunctivae clear. NOSE: Normal no drainage NECK: Supple. No adenopathy, no masses. RESPIRATORY: Airway patent, respirations nonlabored. Clear to auscultation bilaterally, no rales, rhonchi, wheezing. CARDIOVASCULAR: Regular rate and rhythm without murmurs rubs or gallops. ABDOMINAL: Soft, nontender, nondistended, normal bowel sounds MUSCULOSKELETAL: Moves all extremities. Strength/ROM intact, No edema, No calf tenderness. NEURO: Alert. Cranial nerves II through XII intact. SKIN: Warm, dry. Normal Color Course Course Emergency Course: Differential diagnosis includes gastritis, esophagitis, gastroenteritis, cannabinoid hyperemesis syndrome. With patient having a negative work-up by GI, being currently pain-free pain-free and using THC daily hyperemesis syndrome is more likely. Patient was up to the results of the work-up. Patient does feel improved with treatment. All question concerns were addressed. Patient was comfortable with the plan for discharge and close follow-up. Vital Signs Vital signs: Vital Signs Temperature 97.2 F L 08/18/22 14:35 Pulse Rate 72 08/18/22 14:35 Respiratory Rate 16 08/18/22 14:35 Blood Pressure 164/102 H 08/18/22 14:35 Pulse Oximetry 100 08/18/22 14:35 Oxygen Delivery Room Air 08/18/22 14:35 Temperature 97.2 F L 08/18/22 14:35 Pulse Rate 90 08/18/22 16:37 Respiratory Rate 16 08/18/22 16:37 Blood Pressure 184/111 H 08/18/22 16:37 Pulse Oximetry 100 08/18/22 16:37 Oxygen Delivery Room Air 08/18/22 14:35 Medical Decision Making Vital Signs Vital Signs: Vital Signs Temperature 97.2 F L 08/18/22 14:35 Pulse Rate 72 08/18/22 14:35 Respiratory Rate 16 08/18/22 14:35 Blood Pressure 164/102 H 08/18/22 14:35 Pulse Oximetry 100 08/18/22 14:35 Oxygen Delivery Room Air 08/18/22 14:35 Temperature 97.2 F L 08/18/22 14:35 Pulse Rate 90 08/18/22 16:37 Respiratory Rate 16 08/18/22 16:37 Blood Pressure 184/111 H 08/18/22 16:37 Pulse Oxim
[2022-08-18] MEDS: HALOPERIDOL LACTATE 5 MG/ML VIAL IM (15:21)
[2022-08-18] MEDS: SODIUM CHLORIDE 0.9% IV 1,000 ML 999 ML IV CONT (15:21)
[2022-08-18 16:37] VITALS: BP 184/111; PULSE 90; RESP 16; O2SAT 100
[2022-08-18 16:43] LABS: Appearance Urine Clear (Clear); Bilirubin Urine Negative (Negative); Blood Urine Trace-intact (Negative); Color Urine Yellow (Yellow); Glucose Urine UA Negative (Negative); Ketones Urine Trace mg/dL (Negative); Leukocyte Esterase Ur Negative LEU/UL (Negative); Nitrate Urine Negative (Negative); Protein Urine Negative (Negative); pH Urine 8.5 (5.0-9.0)
[2022-08-18] MEDS: METOCLOPRAMIDE HCL 10 MG TABLET PO (16:47)
[2022-08-18 16:55] LABS: Mucus Urine Rare /lpf; RBC Urine 0-2 /hpf (0-2); WBC Urine 0-3 /hpf
[2022-08-18 16:57] LABS: Add Urine Microscopic? YES
== END 2022-08-18 17:09 | disposition home or self-care (01) ==
PROVIDERS: Emergency Provider Emergency Medicine; PCP Internal Medicine
DX: R11.2 Nausea with vomiting, unspecified (principal); F12.90 Cannabis use, unspecified, uncomplicated; M19.90 Unspecified osteoarthritis, unspecified site
CPT/HCPCS: 36415; 80053; 81001; 83690; 85025; 96360; 96372; 99283; A9270; J1630; J7030

== ENCOUNTER 2023-04-27 17:33 | Emergency (ER) | payer OTHER, SELFPAY ==
[2023-04-27] VITALS (9 sets, daily range): BP systolic 136–233; BP diastolic 74–105; PULSE 70–95; RESP 12–20; TEMP 37; O2SAT 70–100
[2023-04-27 18:13] LABS: Basophils Percent Auto 0.1 % (0.2-1.2); Eosinophils Percent Auto 0.1 % (0-4.4); Hematocrit 49.6 % (42.0-52.0); Hemoglobin 16.8 g/dL (14.0-18.0); Immature Granulocyte Absolute 0.03 K/mm3 (0.00-0.031); Immature Granulocyte Percent A 0.3 % (0-0.5); Lymphocytes Absolute Auto 0.78 K/mm3 (0.9-3.2); Lymphocytes Percent Auto 8.5 % (18.3-44.2); Mean Corpuscular HGB Conc 33.9 g/dl (32-36); Mean Corpuscular Hemoglobin 31.5 pg (26-34); Mean Corpuscular Volume 92.9 fl (80-100); Mean Platelet Volume 10.3 fl (7.4-10.4); Monocytes Absolute Auto 0.2 K/mm3 (0.1-0.6); Monocytes Percent Auto 1.6 % (2.6-8.5); Neutrophils Absolute Auto 8.2 K/mm3 (1.3-6.7); Neutrophils Percent Auto 89.4 % (45.5-73.1); Platelet Count Result 252 k/mm3 (150-375); Red Blood Count 5.34 M/mm3 (4.6-6.20); Red Cell Distribution Width 12.2 % (11.5-14.5); White Blood Count 9.2 K/mm3 (4.5-10.0)
[2023-04-27 18:28] LABS: Alanine Aminotransferase 28 U/L (6-50); Albumin Level 5.2 g/dL (3.5-5.1); Alkaline Phosphatase 117 U/L (38-126); Anion Gap 8 mmol/L (8-16); Aspartate Amino Transferase 35 U/L (17-59); Bilirubin,Total 0.9 mg/dL (0.2-1.3); Blood Urea Nitrogen 14 mg/dL (9-20); Calcium 9.5 mg/dL (8.4-10.2); Carbon Dioxide 28 mmol/L (22-30); Chloride 99 mmol/L (98-107); Estimated CRCL calculation 82 ml/min; Estimated Glomerular Filt Rate > 60; Glucose 133 mg/dL (65-110); Lipase 42 U/L (23-300); Potassium 4.4 mmol/L (3.4-5.0); Sodium 135 mmol/L (137-145)
--- NOTE | 2023-04-27 19:53 | ED.GENADULT ---
HPI - General Adult General Chief complaint: Abdominal Pain Stated complaint: abd pain, nausea Time Seen by Provider: 04/27/23 19:37 History of Present Illness HPI narrative: This is a 52-year-old male history of chronic abdominal pain cyclic vomiting presenting with abdominal pain and vomiting. Patient said at 10:00 a.m. started having achy pain underneath his belly button. She has not rate 7 out 10 intensity and constant. He says he has experiences every 8-10 months when he has episodes of cyclic vomiting. It is worse with eating. He has had multiple episodes of nausea vomitings been unable to keep down his antiemetics or water. Denies fever chills chest pain difficulty breathing urinary symptoms or neurologic deficits. Related Data Allergies Allergy/AdvReac Type Severity Reaction Status Date / Time No Known Allergies Allergy Verified 08/18/22 14:44 [facility] Past Medical History Medical History Gout Osteoarthritis Surgical History Surgical History H/O arthroscopic knee surgery Social History Social History Smoking status: Former smoker Alcohol intake: never Substance use: never Living arrangements: with family Gender identity (if verbalized by the patient): Male Exam Narrative: APPEARANCE: No apparent distress. Head: atraumatic. EYES: EOMI, NOSE: Atraumatic NECK: Trachea midline RESPIRATORY: No increased rate of breathing CARDIOVASCULAR: RRR, ABDOMINAL: Non-distended, , soft nontender no guarding or rebound MUSCULOSKELETAl: No obvious deformities NEURO: Alert. Moving 4/4 extremities, Cranial nerves 2-12 grossly intact. Sensation light touch, motor function cerebellar function intact for 4 extremities. Gait exam was normal. SKIN:: Warm, dry. Normal color PSYCHIATRIC: Normal affect Course Vital Signs Vital signs: Vital Signs Temperature 98.6 F 04/27/23 18:03 Pulse Rate 75 04/27/23 18:03 Respiratory Rate 15 04/27/23 18:03 Blood Pressure 233/104 H 04/27/23 18:03 Pulse Oximetry 100 04/27/23 18:03 Oxygen Delivery Room Air 04/27/23 18:03 Temperature 98.6 F 04/27/23 20:12 Pulse Rate 86 04/27/23 20:12 Respiratory Rate 16 04/27/23 20:12 Blood Pressure 194/105 H 04/27/23 20:12 Pulse Oximetry 100 04/27/23 20:12 Oxygen Delivery Room Air 04/27/23 18:03 Medical Decision Making [facility] Narrative Medical decision making narrative: -Course: 52-year-old male history of cyclic vomiting presenting with nausea vomiting abdominal pain. Patient was treated for cyclic vomiting with improvement in his symptoms. Vital signs improved. Abdominal exam is still benign. Patient is tolerating p.o.. Patient was then educated on cyclic vomiting. Patient be discharged to follow-up with his primary care physician. -DDX includes but is not limited to: cyclic vomiting/ cannabis hyperemesis. Gastroenteritis, gastritis, viral syndrome, gallbladder disease, pancreatitis -Co-morbidities complicating care: daily marijuana use -Social determinants of health: patient works in the [employer] and lives with his . Uses marijuana 5 times per week. -External Chart Review: Review of previous ER visits for similar presentation. -Hx from independent Sources: at bedside -Independent interpretation of studies: laboratory studies normal urine drug screen positive for marijuana. -Dx tests considered but not ordered: CT abdomen pelvis-benign abdominal exam -Interventions:2L normal saline, 5 mg IM Haldol, 4 mg Zofran, 20 mg Pepcid -Shared decision making / Disposition: discharge -RX Zofran Vital Signs Vital Signs: Vital Signs Temperature 98.6 F 04/27/23 18:03 Pulse Rate 75 04/27/23 18:03 Respiratory Rate 15 04/27/23 18:03 Blood Pressure 233/104 H 04/27/23 18:03 Pulse Oximetry 100 04/27/23 18:03
[2023-04-27] MEDS: SODIUM CHLORIDE 0.9% IV 2,000 ML 999 ML IV CONT (20:08)
[2023-04-27] MEDS: ONDANSETRON INJ 4 MG/2 ML VIAL IV PUSH (20:09)
[2023-04-27] MEDS: FAMOTIDINE 20 MG/2 ML VIAL IV PUSH (20:09)
[2023-04-27] MEDS: HALOPERIDOL LACTATE 5 MG/ML VIAL IM (20:11)
[2023-04-27 20:18] LABS: Appearance Urine Clear (Clear); Bacteria Urine None Seen /hpf; Bilirubin Urine Negative (Negative); Color Urine Yellow (Yellow); Glucose Urine UA Negative (Negative); Ketones Urine Negative (Negative); Leukocyte Esterase Ur Negative LEU/UL (Negative); Nitrate Urine Negative (Negative); Protein Urine Trace mg/dL (Negative); Specific Grav Ur 1.029 (1.001-1.035); Squamous Epithelial Cell Urine None seen /hpf (Few); Urobilinogen Urine 0.2 mg/dL (<2.0); WBC Urine 0-5 /hpf
[2023-04-27 20:21] LABS: Add Urine Microscopic? YES
[2023-04-27 20:23] LABS: Amphetamine Screen Urine Negative (Negative); Barbiturate Screen Urine Negative (Negative); Benzodiazepines Screen Urine Negative (Negative); Cannabinoid Screen Urine Positive (Negative); Cocaine Screen Urine Negative (Negative); Methadone Screen Urine Negative (Negative); Opiate Screen Urine Negative (Negative); Phencyclidine Screen Urine Negative (Negative)
== END 2023-04-27 22:05 | disposition home or self-care (01) ==
PROVIDERS: Student in an Organized Health Care Education/Training Program; Emergency Provider Emergency Medicine; PCP Internal Medicine
DX: R11.11 Vomiting without nausea (principal); F12.90 Cannabis use, unspecified, uncomplicated; M10.9 Gout, unspecified; M19.90 Unspecified osteoarthritis, unspecified site; Z87.891 Personal history of nicotine dependence; Z79.899 Other long term (current) drug therapy
CPT/HCPCS: 36415; 80053; 80307; 81001; 83690; 85025; 96361; 96372; 96374; 96375; 99284; J1630; J2405; J7030

== ENCOUNTER 2024-12-12 10:27 | Emergency (ER) | payer BC, SELFPAY ==
--- NOTE | ~2024-12-12 | CT_ITS ---
EXAMINATION: CT abdomen pelvis w con DATE: 12/12/2024 14:31 INDICATION: Upper abdominal pain, nausea, vomiting and diarrhea. TECHNIQUE: Computed tomography (CT) of the abdomen and pelvis was performed with 100 mL Omnipaque-350 intravenous contrast. Automated exposure control and iterative reconstruction technique were employe d. The dose-length product was 605.58 mGy-cm. COMPARISON: 08/18/2021 FINDINGS: Lung bases are clear. Heart size is normal. Atherosclerotic coronary artery calcification. No pericar dial or pleural effusion. Small sliding-type hiatal hernia. Liver, gallbladder, spleen, pancreas, emmanuelle ateral adrenal glands and kidneys are normal. Diffuse fatty infiltration of the colonic wall which co uld be due related to body habitus or sequela of chronic inflammation.. Small bowel and appendix are normal. Bladder is normal. Small fat-containing left inguinal hernia. No free intraperitoneal gas or fluid. No pathologically enlarged abdominal or pelvic lymphadenopathy. Mild lumbar levocurvature with moderate to severe lumbar spondylosis. IMPRESSION: 1. No acute intra-abdominal/pelvic process. 2. Small sliding-type hiatal hernia. 2. Small fat-containing left inguinal hernia. Reviewed, dictated and finalized at location A.
[2024-12-12 10:29] VITALS: BP 190/111; PULSE 70; RESP 16; TEMP 36.4; O2SAT 100
--- NOTE | 2024-12-12 10:49 | ECG_ITS ---
Test Date: 2024-12-12 10:52:40 Measurements Intervals [place] Rate: 63 P: -9 NH: 159 QRS: -16 QRSD: 139 T: -7 QT: 439 QTc: 449 Interpretive Statements SINUS RHYTHM RIGHT BUNDLE BRANCH BLOCK [120+ ms QRS DURATION, UPRIGHT V1, 40+ ms S IN I/aVL/V4/V5/V6] MINIMAL VOLTAGE CRITERIA FOR LVH, CONSIDER NORMAL VARIANT [MEETS CRITERIA IN ONE OF: R(aVL), S(V1), R(V5), R(V5/V6)+S(V1)] ABNORMAL ECG No previous ECG available for comparison Electronically Signed On 12-12-2024 13:15:58 CDT by Kwasi Merino M.D.
[2024-12-12 10:56] LABS: Basophils Percent Auto 0.1 % (0.2-1.2); Eosinophils Percent Auto 0.1 % (0-4.4); Hematocrit 49.1 % (42.0-52.0); Immature Granulocyte Absolute 0.05 K/mm3 (0.00-0.031); Immature Granulocyte Percent A 0.7 % (0-0.5); Lymphocytes Absolute Auto 0.61 K/mm3 (0.9-3.2); Lymphocytes Percent Auto 8.4 % (18.3-44.2); Mean Corpuscular HGB Conc 32.6 g/dl (32-36); Mean Corpuscular Hemoglobin 30.4 pg (26-34); Mean Corpuscular Volume 93.2 fl (80-100); Mean Platelet Volume 10.4 fl (7.4-10.4); Monocytes Absolute Auto 0.2 K/mm3 (0.1-0.6); Monocytes Percent Auto 2.7 % (2.6-8.5); Neutrophils Absolute Auto 6.4 K/mm3 (1.3-6.7); Platelet Count Result 249 k/mm3 (150-375); Red Blood Count 5.27 M/mm3 (4.6-6.20); White Blood Count 7.3 K/mm3 (4.5-10.0)
--- OUTSIDE RECORDS SUMMARY | 2024-12-12 11:03 | XMS_ITS | Continuity of Care Document ---
Author Organization [employer] Address [address] [place] [address] Phone Care Team Providers Care Barkeep Name Role Phone Daniele Olivas MD Unavailable Unavailable Allergies, Adverse Reactions, Alerts Substance Reaction Status Criticality No Known Drug Allergies Other Active No I nformation Medications Medication Instructions Dosage Effective Dates (start - stop) Status Comments hydrocodone 5 mg-acetaminophen 325 mg tablet take 1 tablet by oral route every 6 hours as needed for pain 1.00 tablet - Active M54.5 hydrocodone 5 mg-acetaminophen 325 mg tablet take 1 tablet by oral route every 6 hours as needed for pain 1.00 tablet - No Longer Active M54.5 Procedures Procedure Date Pt inelig neg scrn depres PREVENTATIVE-EST: 40-64 BODY MASS INDEX DOCD SYST BP LT 130 MM HG DIAST BP < 80 MM HG CBC, INC PLATELETS AND DIFFERENTIAL COMPREHEN METABOLIC PANEL CMP 5 LIPID PANEL PSA, TOTAL ROUTINE VENIPUNCTURE Pt inelig neg scrn depres CBC, INC PLATELETS AND DIFFERENTIAL COMPREHEN METABOLIC PANEL CMP 4 LIPID PANEL PSA, TOTAL ROUTINE VENIPUNCTURE FALL RISK ASSESSMENT DOC'D PRES/ABSN URINE INCON ASSESS PREVENTATIVE-EST: 40-64 BODY MASS INDEX DOCD SYST BP GE 130 - 139MM HG DIAST BP 80-89 MM HG TISSUE EXAM BY PATHOLOGIST COLONOSCOPY, REMOVAL SNARE TECH 023 UPPER GI ENDOSCOPY BIOPSY OFFICE [id number] BODY MASS INDEX DOCD SYST BP >= 140 MM HG6 IT DIAST BP >= 90 MM HG Pt inelig neg scrn depres CBC, INC PLATELETS AND DIFFERENTIAL COMPREHEN METABOLIC PANEL CMP LIPID PANEL PSA, TOTAL URINALYSIS, DIPSTICK (UA) - Office Lab D ROUTINE VENIPUNCTURE FALL RISK ASSESSMENT DOC'D PRES/ABSN URINE INCON ASSESS PREVENTATIVE-EST: 40-64 BODY MASS INDEX DOCD SYST BP GE 130 - 139MM HG DIAST BP < 80 MM HG FALL RISK ASSESSMENT DOC'D PRES/ABSN URINE INCON ASSESS Pt inelig neg scrn depres OFFICE [id number] BODY MASS INDEX DOCD SYST BP >= 140 MM HG6 IT DIAST BP >= 90 MM HG FALL RISK ASSESSMENT DOC'D PRES/ABSN URINE INCON ASSESS OFFICE [id number] BODY MASS INDEX DOCD SYST BP GE 130 - 139MM HG DIAST BP < 80 MM HG FALL PLAN OF CARE DOC'D URINE INCON PLAN DOC'D PRES/ABSN URINE INCON ASSESS Pt inelig neg scrn depres CBC, INC PLATELETS AND DIFFERENTIAL COMPREHEN METABOLIC PANEL CMP 0 LIPID PANEL PSA, TOTAL URINALYSIS, DIPSTICK (UA) - Office Lab J ROUTINE VENIPUNCTURE PREVENTATIVE-EST: 40-64 BODY MASS INDEX DOCD SYST BP GE 130 - 139MM HG DIAST BP < 80 MM HG Advance Directives Directive Yes / No Effective Date File Name Life Support Not Answered N/A N/A Intubation Not Answered N/A N/A Antibiotics Not Answered N/A N/A IV Fluid Support Not Answered N/A N/A Tube Feed Not Answered N/A N/A Other Directive N/A N/A WARNING:The information contained in this section is historical and is provided for information only and does not constitute a legal document or any assurance that the information is still accurate. Please verify the information with the chaparro of the legal document before using it for clinical purposes. Encounters Encounter Description Practice Location Reason(s) For Visit Diagnoses Date Provider Providers Copied on Encounter [employer], [address], [place], [place], [id number] , tel:[phone] [facility] No Information 5 Olivas Daniele. [address] [place] [address], [id number], . tel:[phone] [facility] [employer] [facility], [address], [place], [place], [address] , tel:[phone] [facility] No Information 5 Olivasiraj Sanabria. [address] [place] [address], [address], [id number], . tel:[phone] PREVENTATIVE -EST: 64 [facility], [address], [place], [place], [address] , tel: [phone] [facility] preventive exam (chief complaint)C hronic Conditions (chief complaint)c hronic conditions (chief complaint) Encounter for general adult medical examination without abnormal findingsOSA (obstructive sleep apnea)Body mass index [BMI] 28.0-28.9, adultScreening PSA (prostate specific antigen)Chroni c bilateral low back pain without sciatica 5 Brigitte Poole. [address] , [address] , [place], [place], [address], . tel:[phone] Referring Provider: Zulema Briggs, [address] , [place], [address] . tel:[phone] PREVENTATIVE -EST: 40-64 [facility], [address], [place], [place], [address] , tel:[phone] [facility] preventive exam (chief complaint)C hronic Conditions (chief complaint) Body mass index [BMI] 27.0-27.9, adultEncounter for general adult medical examination without abnormal findingsChroni c midline low back pain without sciaticaOSA (obstructive sleep apnea)Screenin g PSA (prostate specific antigen) 4 Brigitte Poole. [address] [facility], [address] , [place], [place], [address], . tel:[phone] Referring Provider: Daniele Olivas, [address] [place] [address] [address] , [place], [address] . tel:[phone] [facility], [address], [place], [place], [address] , [place] tel:[phone] [facility] No Information 3 Hernan Lucia. [address] [place] [address], [id number], . tel:[phone] Referring Provider: Daniele Olivas [address] [place] [address] [address] [place], [address] . tel:[phone] [facility], [address] [place] [address], [id number] , tel:[phone] [facility] No Information 3 Hernan Lucia. [address] [place] [address], [id number], . tel:[phone] Referring Provider: Sudheer Esparza, [address] , [place], [address] . tel:[phone] OFFICE FDDBY-YVY-EP TAILED [facility] [employer], [address], [place], [place], [address] , [place] tel:[phone] [facility] Abdominal pain (chief complaint)N ausea/vomit ing (chief complaint) Encounter for screening colonoscopyCyc lical vomiting with nausea 3 Eitan Sampson. [address] [place], [place], [address], [place]. tel:[phone] Referring Provider: Daniele Olivas, [address] [place] [address] [address], [place], [address] . tel:[phone] PREVENTATIVE -EST: 40-64 [facility], [address], [place], [place], [address] , [place] tel:[phone] [facility] preventive exam (chief complaint)r ight thumb pain (chief complaint)e ye lid lesion (chief complaint)C hronic Conditions (chief complaint) Body mass index [BMI] 23.0-23.9, adultEncounter for general adult medical examination without abnormal findingsChroni c low back pain, unspecified back pain laterality, unspecified whether sciatica presentScreeni ng PSA (prostate specific antigen)Lesion of right eyelidPain of right thumbOSA (obstructive sleep apnea) 2 Brigitte Poole. [address] [facility], [address], [place], [place], [address], [place]. tel:[phone] Referring Provider: Zulema Briggs, [address] [place] [address] [address], [place], [address] . tel:[phone] OFFICE ODZIA-JEN-IU PANDED [facility], [address], [place], [place], [address] , [place] tel:[phone] [facility] ER follow up-back pain (chief complaint) Body mass index (BMI) 24.0-24.9, adultChronic left-sided low back pain without sciaticaNon-in tractable vomiting with nausea, unspecified vomiting type Sep-3 1 Brigitte Poole. [address] [facility], [address], [place], [place], [address], [place]. tel:[phone] Referring Provider: Daniele Olivas, [address] [place] [address] [address] , [place], [address] . tel:[phone] OFFICE NZDPE-AHE-FJ PANDED [facility], [address], [place], [place], [address] , tel: [phone] [facility] Chronic Conditions (chief complaint) Chronic right-sided low back pain with right-sided sciaticaScreen ing for colon cancer 0 Brendon Sanabria. [address] [place] [address], [address] , [place], [address] [place] [address], . [phone] Referring Provider: Daniele Olivas, [address] [place] [address] [address] , [place], [address] . tel:[phone] PREVENTATIVE -EST: 40-64 [facility], [address], [place], [address] , tel: [phone] [facility] preventive exam (chief complaint)C hronic Conditions (chief complaint) Body mass index (BMI) 25.0-25.9, [facility] examinationOth er chronic back painOSA (obstructive sleep apnea)Screenin g PSA (prostate specific antigen)Micros copic hematuria 0 Brigitte Poole. [address] [place] [address], [address] , [place], [address] [place] [address], . [phone] Referring Provider: Daniele Olivas, [address] [place] [address] [address] , [place], [address] . tel:[phone] [facility], [address], [place], [place], [address] , tel: [phone] [facility] EDWIGE (obstructive sleep apnea)Chronic upper back pain 8 Brendon Sanabria. [address] [place] [address], [address] , [place], [place], [address], . [phone] Referring Provider: Daniele Olivas, [address] [place] [address] [address] , [place], [address] . tel:[phone] [facility] [employer] [facility], [address], [place], [place], [address] , tel:[phone] [facility] Encounter for annual health examinationChr onic upper back painOSA (obstructive sleep apnea)Body mass index (BMI) 27.0-27.9, adult Oct- 8 Brendon Sanabria. [address] [place] [address], [address], [place], [place], [address], . tel:[phone] Referring Provider: Daniele Olivas, [address] [place] [address] [address], [place], [address] . tel:[phone] [facility], [address], [place], [place], [address] , tel:[phone] [facility] Chronic low back pain without sciatica, unspecified back pain lateralityOSA (obstructive sleep apnea)Influenz a vaccination declinedLipid screening 6 Brigitte Poole. [address] [place] [address], [address], [place], [place], [address], . tel:[phone] Referring Provider: Daniele Olivas, [address] [place] [address] [address], [place], [address] . tel:[phone] [facility], [address], [place], [place], [address] , tel:[phone] [facility] BackacheBackac heHTNOpioid type dependence, unspecified useOpioid type dependence, unspecified use 4 Giancarlo Morales. [address] [facility], [address], [place], [place], [address]. tel:[phone] Referring Provider: Babak Dover, [address] [place], [address] . tel:[phone] [facility], [address], [place], [address] , [place] tel:[phone] [facility] Unspecified essential hypertensionOt her and unspecified hyperlipidemia ABDMNAL PAIN RT UPR QUADNausea & vomitingUrine ketones 2 Brigittedwight Poole. [address] [facility], [address], [place], [place], [address], . tel:[phone] [facility] [employer], [address], [place], [place], [address] , tel: [phone] [facility] HYPERLIPIDEMIA NEC/NOSABNORMA L GLUCOSE NEC 8 No Information [facility], [address], [place], [place], [address] , tel: [phone] [facility] BENIGN HYPERTENSION 8 Brigitte Poole. [address], [address], [place], [place], [address], . tel:[phone] [facility], [address], [place], [place], [address] , tel: [phone] [facility] ABDMNAL PAIN RT UPR QUAD 8 No Information [facility], [address], [place], [place], [address] , tel: [phone] [facility] No Information 7 No Information [facility], [address], [place], [place], [address] , tel: [phone] [facility] RESPIRATORY ABNORM NEC 7 Brigitte Zulema. [address], [address], [place], [place], [address], . [phone] Family History Family Member Type Diagnosis Age At Onset Mother Problem (finding) chronic obstru ctive lung disease (Cause Of ) Immunizations Vaccine Date Status Comments J&J COVID/Adenovirus Vaccine [id number] viral particles/0.5mL [facility] Un[facility] Payers Payer name Insurance type Covered libertarian ID Authoriza tialan(s) [facility] ACCESS CHOICE BL [id number] Social History Type Description Quantity Date Captured Comments Alcohol Use Details Unknown Caffeine Use Details Unknown Tobacco Use Status No Information Smoking Status No Information Sex Male Chief Complaint And Reason For Visit No Information Reason For Referral Reason For Referral No Information Plan Of Treatment Date Type Action Status Goal Dietary manageme nt education, guidance, and counseling completed Goal Dietary manageme nt education, guidance, and counseling completed Goal Dietary manageme nt education, guidance, and counseling completed Goal Dietary manageme nt education, guidance, and counseling completed Goal Dietary manageme nt education, guidance, and counseling completed Appointment Fabio Rosado II BOOKED History Of Present Illness Encounter Date Complaint History Of Prese nt Illness chronic conditions *See Chronic Conditions HPI preventive exam Men's preventive visit. Patient Health Questionnaire (PHQ-2) is negative. Patient is on a regular diet. The patient has weight gain of 12.00 pounds (5.45 kilograms) over 12 Months. Marital status: . Concern(s)/Requests Detail: He is here today for a preventive exam. He is . He does not smoke, drinks alcohol. He had colonoscopy in 2022. He does not take flu vaccines. Had one COVID vaccine, no boosters. Relevant history is positive for alcohol use. Relevant history is negative for tobacco use, passive smoke exposure, passive vaping exposure. Chronic Conditions *See Chronic Conditions HPI Chronic Conditions *See Chronic Conditions HPI preventive exam Men's preventive visit. Patient Health Questionnaire (PHQ-2) is negative. Patient is on a regular diet. The patient has weight gain of 27.00 pounds (12.27 kilograms) over 13 Months. Marital status: . Concern(s)/Requests Detail: He is here today for a preventive exam. States he is doing pretty well. 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 He does not take flu vaccines, had one COVID vaccine, no boosters. He had upper and lower endoscopies in 2022. Relevant history is positive for alcohol use. Relevant history is negative for tobacco use, passive smoke exposure, passive vaping exposure. Abdominal pain Nausea/vomiting preventive exam Men's preventive visit. Patient is on a regular diet. The patient has weight loss of 5.00 pounds (2.27 kilograms) over 21 Months. Marital status: . Concern(s)/Requests Detail: He is here today for a preventive exam. He was last here in September 2020. 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 He was in ER at [facility] 06/18 with abdominal pain. He states he will have sudden onset of upper abdominal pain then nausea and vomiting. He states it happen 'every once in a while. He states he has not ever pursued follow up with Gi. He is agreeable for follow up and for screening colonoscopy. He states he had Ruben and Ruben COVID vaccine in Fall 2020, no boosters. He does not take flu vaccines. Relevant history is positive for alcohol use. Relevant history is negative for tobacco use, passive smoke exposure, passive vaping exposure. eye lid lesion The symptoms are reported as being mild. The symptoms occur constantly. The patient states the symptoms are acute and are unchanged. He notes he has had a lesion on right lower eye lid 'a little while'. Denies any pain, drainage or change of vision. Has not changed in size that he can tell. right thumb pain Onset: sudden. Duration: 3 Weeks. Severity level is mild-moderate. It occurs intermittently and is improving. Location: right thumb. There is no radiation. The pain is aching. Context: there is no injury. The pain is aggravated by movement. The pain is relieved by rest. Associated symptoms include joint tenderness. Pertinent negatives include bruising, crepitus, joint instability, limping, tingling in the arms and weakness. Hand Dominance: right. Additional information: He states about 3 weeks ago he noticed he had pain in his right thumb at [facility], He denies an injury, notes that pain has most all resolved. He declines any further evaluation presently- will advise if it returns. Chronic Conditions *See Chronic Conditions HPI ER follow up-back pain He notes he went to ER last night with back pain. States they thought he might have a kidney stone. Did labs and CT which were negative. He states he continues to have nausea and vomiting- had gone to ER on 10/13 for those reasons. He notes he did not get a prescription at that time. He notes he was given rx for Zofran and tramadol in ER. He is advised if he fills tramadol it is in violation of his agreement and his prescription for hydrocodone will no longer be filled by Dr Olivas. Verbalizes understanding. Chronic Conditions *See Chronic Conditions HPI preventive exam Men's preventive visit. Patient Health Questionnaire (PHQ-2) is negative. Patient is on a regular diet. He has weight loss of 20.00 pounds (9.09 kilograms) over 19 Months. Marital status: . Concern(s)/Requests Detail: He is here today for a preventive exam. He is , works for a company which [employer] before any digging. He does note smoke, drinks beer/shots every week -probably 10. He states he does not get flu vaccines. He does not recall last tetanus- probably more than 13 yrs. ago. He declines shingrix presently. Discussed screening colonoscopy. He will check with his insurance for preferred locations and advise when ready to schedule. Noted to have lost weight- states his job is more active and he has been watching portions as well. Relevant history is positive for passive smoke exposure, alcohol use. Relevant history is negative for tobacco use, passive vaping exposure. Chronic Conditions *See Chronic Conditions HPI Functional Status Date Functional Assessmen t No Information Instructions Date Instruction Additional Infor yaya He is here today for a preventive exam. He is . He does not smoke, drinks alcohol. He had colonoscopy in 2022. He does not take flu vaccines. Had one COVID vaccine, no boosters. Related to Encounter for general adult medical examination without abnormal findings He will continue pre sent plan of care- Medication contract signed today. Related to Chronic bilateral low back pain without sciatica He states his t ells him he snores. He states dog will wake him if he is snoring. Related to EDWIGE (obstructive sleep apnea) Disease process Dietary management e ducation, guidance, and counseling Related to Body mass index (BMI) 28.0-28.9, adult Prescribed activity/exercise edu cation Related to Body mass index (BMI) 28.0-28.9, adult He is here today for a preventive exam. States he is doing pretty well. 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 He does not take flu vaccines, had one COVID vaccine, no boosters. He had upper and lower endoscopies in 2022. Related to Encounter for general adult medical examination without abnormal findings Checking screening PSA today Rel ated to Screening PSA (prostate specific antigen) He denies sleep issu es, not interested in pursuing further sleep evaluation. Related to EDWIGE (obstructive sleep apnea) Continue present plan of care. R elated to Chronic midline low back pain without sciatica Disease process Dietary management e ducation, guidance, and counseling Related to Body mass index (BMI) 27.0-27.9, adult Prescribed activity/exercise edu cation Related to Body mass index (BMI) 27.0-27.9, adult We are getting you s cheduled for an EGD (upper endoscopy) this will allow the doctor to examine your esophagus and stomachFurther recommendations to follow after the procedure Related to Cyclical vomiting with nausea We are getting you s cheduled for a colonoscopy as well to screen for colon cancerFurther recommendations to follow after the procedure Related to Encounter for screening colonoscopy He is here today for a preventive exam. He was last here in September 2020. 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 He was in ER at [facility] 06/18 with abdominal pain. He states he will have sudden onset of upper abdominal pain then nausea and vomiting. He states it happen 'every once in a while. He states he has not ever pursued follow up with Gi. He is agreeable for follow up and for screening colonoscopy. He states he had Ruben and Ruben COVID vaccine in Fall 2020, no boosters. He does not take flu vaccines. Related to Encounter for general adult medical examination without abnormal findings He declines further evaluation with different equipment at this time Related to EDWIGE (obstructive sleep apnea) Checking screening PSA today Rel ated to Screening PSA (prostate specific antigen) He will continue present plan of care Related to Chronic low back pain, unspecified back pain laterality, unspecified whether sciatica present Disease process Prescribed activity/exercise edu cation Related to Body mass index (BMI) 23.0-23.9, adult Dietary management e ducation, guidance, and counseling Related to Body mass index (BMI) 23.0-23.9, adult He notes he has had nausea and vomiting recently. He has not picked up rx for zofran but has used previously. He did not get rx for reglan he notes from his ER visit last week. He had CT and lab in ER at [facility] last night. Related to Non-intractable vomiting with nausea, unspecified vomiting type He notes he went to ER last night with back pain. States they thought he might have a kidney stone. Did labs and CT which were negative. He states he continues to have nausea and vomiting- had gone to ER on 10/13 for those reasons. He notes he did not get a prescription at that time. Related to Chronic left-sided low back pain without sciatica Dietary management e ducation, guidance, and counseling Related to Body mass index (BMI) 24.0-24.9, adult Disease process Prescribed activity/exercise edu cation Related to Body mass index (BMI) 24.0-24.9, adult Given information to call and schedule a colonoscopy soon. Related to Screening for colon cancer Continue current med ications for now but discussed the risks and benefits and proper use of opioid pain relievers. Related to Chronic right-sided low back pain with right-sided sciatica Disease process He is noted to have microscopic hematuria on urine dip. Related to Microscopic hematuria He has not had PSA in the past. Related to Screening PSA (prostate specific antigen) He is here today for a preventive exam. 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 He drinks 10 beers/shots one night a week when playing darts. He notes he lost weight since last here in January 2018, states he has a more active job now and watches portions more closely. He declines to have any vaccines. Discussed getting screening colonoscopy- he will check with his insurance provider and call when he is agreeable to schedule. Needs PSA screening today. Related to Encounter for preventive health examination Given refill of hydr ocodone per Dr Olivas. Related to Other chronic back pain Suggested checking w ith provider again, maybe can find better fitting mask since weight loss. He states he will think about it. Related to EDWIGE (obstructive sleep apnea) Disease process Dietary management e ducation, guidance, and counseling Related to Body mass index (BMI) 25.0-25.9, adult Prescribed activity/exercise edu cation Related to Body mass index (BMI) 25.0-25.9, adult Assessments Type Assessment Date No Information Patient Care Teams Name Effective Dates (start - stop) Status Members No Information
--- OUTSIDE RECORDS SUMMARY | 2024-12-12 11:03 | XMS_ITS | Clinical Summary ---
Author Organization [facility] Address [address] [place] [id number] Care Team Providers Care Gate Cutter Name Role Phone Unavailable Primary Care Provider Unavailabl e Immunizations Immunization Administration Dates Next Due Covid-19 Vaccine, Vector-nr, Rs-ad26, Pf, 0.5 Ml ([employer]) 12/19/2020 Social History Tobacco Use Types Packs/Day Years Used Date Smoking Tobacco: Never Assessed Sex and Gender Information Value Date Recorded Sex Assigned at Not on file Legal Sex Male 9:50 AM CDT Gender Identity Not on file Sexual Orientation Not on file Plan of Treatment Health Maintenance Due Date Last Done Comments Hepatitis C Virus (HCV) Screening 1969 TdaP Immunization 1969 Hepatitis B Immunization (1 of 3 - 19+ 3-dose series) 1988 Colonoscopy 2014 Colorectal Cancer Screening 2014 Cologuard 2019 Immunochemical Fecal Occult Blood 2019 Pneumococcal Immunization (5 0+ years) (1 of 1 - PCV) 2019 Zoster Immunization (1 of 2) 2019 Influenza Immunization (#1) 2024 SARS-COV-2 Immunization (2 - season) 2024 12/19/2020 PSA Discussion 2024 Respiratory Syncytial Virus (RSV) Immunization (Adult) (1 - 1-dose 75+ series) 2044 Meningococcal Immunization (ACWY) Aged Out No longer eligible based on patient's age to complete this topic Pneumococcal Immunization Combined Aged Out No longer eligible based on patient's age to complete this topic Rotavirus Immunization Aged Out No lo nger eligible based on patient's age to complete this topic
--- NOTE | 2024-12-12 11:11 | PC.NURSE ---
Asked patient to give urine sample. He states he will use the call light when he has a sample.
[2024-12-12 11:18] LABS: Alanine Aminotransferase 35 U/L (6-50); Albumin Level 4.9 g/dL (3.5-5.1); Alkaline Phosphatase 142 U/L (38-126); Anion Gap 12 mmol/L (4-12); Aspartate Amino Transferase 36 U/L (17-59); Bilirubin,Total 0.8 mg/dL (0.2-1.3); Blood Urea Nitrogen 12 mg/dL (9-20); Calcium 8.6 mg/dL (8.4-10.2); Carbon Dioxide 26 mmol/L (22-30); Chloride 101 mmol/L (98-107); Estimated CRCL calculation 75 ml/min; Estimated Glomerular Filt Rate > 60; Glucose 157 mg/dL (65-110); Lipase 51 U/L (23-300); Potassium 3.5 mmol/L (3.4-5.0); Sodium 139 mmol/L (137-145)
[2024-12-12 11:22] VITALS: BP 175/107; PULSE 70; RESP 18; O2SAT 100
--- OUTSIDE RECORDS SUMMARY | 2024-12-12 12:34 | XMS_ITS | Clinical Summary ---
Author Organization [facility] Address [address] [place] [address] Care Team Providers Care Literacy Specialist Name Role Phone Unavailable Primary Care Provider Unavailabl e Immunizations Immunization Administration Dates Next Due Covid-19 Vaccine, Vector-nr, Rs-ad26, Pf, 0.5 Ml ([employer]) 12/19/2020 Social History Tobacco Use Types Packs/Day [...]
--- OUTSIDE RECORDS SUMMARY | 2024-12-12 12:34 | XMS_ITS | Continuity of Care Document ---
Author Organization [employer] Address [address] [place] [address] Phone Care Team Providers Care Manager Wireless Name Role Phone Daniele Olivas MD Unavailable [...] TECH 023 UPPER GI ENDOSCOPY BIOPSY OFFICE [id number] BODY MASS INDEX DOCD SYST BP >= [...] ASSESS Pt inelig neg scrn depres OFFICE [id number] BODY MASS INDEX DOCD SYST BP >= 140 MM HG6 IT DIAST BP >= 90 MM HG FALL RISK ASSESSMENT DOC'D PRES/ABSN URINE INCON ASSESS OFFICE [id number] BODY MASS INDEX DOCD SYST BP GE [...] Diagnoses Date Provider Providers Copied on Encounter [employer], [address], [place], [place], [address] , tel:[phone] [facility] No Information 5 Olivas Daniele. [address] [place] [address], [id number], . tel:[phone] [facility], [address], [place], [place], [address] , tel:[phone] [facility] No Information 5 Olivasiraj Sanabria. [address] [place] [address], [address], [id number], . tel:[phone] PREVENTATIVE -EST: 64 [facility], [address], [place], [place], [id number] , tel: [phone] [facility] preventive exam (chief complaint)C hronic Conditions (chief complaint)c hronic conditions (chief complaint) Encounter for general adult medical examination without abnormal findingsOSA (obstructive sleep apnea)Body mass index [BMI] 28.0-28.9, adultScreening PSA (prostate specific antigen)Chroni c bilateral low back pain without sciatica 5 Brigitte Poole. [address] , [address] , [place], [place], [address], . tel:[phone] Referring Provider: Zulema Briggs, [address] , [place], [address] . tel:[phone] PREVENTATIVE -EST: 40-64 [facility], [address], [place], [place], [id number] , tel:[phone] [facility] preventive exam (chief complaint)C hronic Conditions (chief complaint) Body mass index [BMI] 27.0-27.9, adultEncounter for general adult medical examination without abnormal findingsChroni c midline low back pain without sciaticaOSA (obstructive sleep apnea)Screenin g PSA (prostate specific antigen) 4 Brigitte Poole. [address] [facility], [address] , [place], [place], [address], . tel:[phone] Referring Provider: Daniele Olivas, [address] [place] [address] [address] , [place], [address] . tel:[phone] [facility], [address], [place], [place], [address] , [place] tel:[phone] [facility] No Information 3 Hernan Lucia. [address] [place] [address], [id number], . tel:[phone] Referring Provider: Daniele Olivas [address] [place] [address] [address] [place], [address] . tel:[phone] [facility], [address] [place] [address], [id number] , tel:[phone] [facility] No Information 3 Hernan Lucia. [address] [place] [address], [id number], . tel:[phone] Referring Provider: Sudheer Esparza, [address] , [place], [address] . tel:[phone] OFFICE BKIGC-PUM-IM TAILED [facility], [address], [place], [place], [address] , [place] tel:[phone] [facility] Abdominal pain (chief complaint)N ausea/vomit ing (chief complaint) Encounter for screening colonoscopyCyc lical vomiting with nausea 3 Eitan Sampson. [address], [place], [address], [place]. tel:[phone] Referring Provider: Daniele Olivas, [address] [place] [address] [address], [place], [address] . tel:[phone] PREVENTATIVE -EST: 40-64 [facility], [address], [place], [place], [address] , [place] tel:[phone] [facility] preventive exam (chief complaint)r ight thumb pain (chief complaint)e ye lid lesion (chief complaint)C hronic Conditions (chief complaint) Body mass index [BMI] 23.0-23.9, adultEncounter for general adult medical examination without abnormal findingsChroni c low back pain, unspecified back pain laterality, unspecified whether sciatica presentScreeni ng PSA (prostate specific antigen)Lesion of right eyelidPain of right thumbOSA (obstructive sleep apnea) 2 Brigitte Poole. [address] [facility], [address], [place], [place], [address], [place]. tel:[phone] Referring Provider: Zulema Briggs, [address] [place] [address] [address], [place], [address] . tel:[phone] OFFICE ASXMV-AQJ-RY PANDED [facility], [address], [place], [place], [address] , [place] tel:[phone] [facility] ER follow up-back pain (chief complaint) Body mass index (BMI) 24.0-24.9, adultChronic left-sided low back pain without sciaticaNon-in tractable vomiting with nausea, unspecified vomiting type Sep-3 1 Brigitte Poole. [address] [facility], [address], [place], [place], [address], [place]. tel:[phone] Referring Provider: Daniele Olivas, [address] [place] [address] [address] , [place], [address] . tel:[phone] OFFICE ZKEGQ-OLO-OB PANDED [facility], [address], [place], [place], [address] , tel: [phone] [facility] Chronic Conditions (chief complaint) Chronic right-sided low back pain with right-sided sciaticaScreen ing for colon cancer 0 Brendon Sanabria. [address] [place] [address], [address] , [place], [address] [place] [address], . [phone] Referring Provider: Daniele Olivas, [address] [place] [address] [address] , [place], [address] . tel:[phone] PREVENTATIVE -EST: 40-64 [facility], [address], [place], [place], [address] , tel: [phone] [facility] preventive exam (chief complaint)C hronic Conditions (chief complaint) Body mass index (BMI) 25.0-25.9, [facility] for [facility] health examinationOth er chronic back painOSA (obstructive sleep apnea)Screenin g PSA (prostate specific antigen)Micros copic hematuria 0 Brigitte Poole. [address] [place] [address], [address] , [place], [address] [place] [address], . [phone] Referring Provider: Daniele Olivas, [address] [place] [address] [address] , [place], [address] . tel:[phone] [facility], [address], [place], [place], [address] , tel: [phone] [facility] EDWIGE (obstructive sleep apnea)Chronic upper back pain 8 Brendon Sanabria. [address] [place] [address], [address] , [place], [place], [id number], . [phone] Referring Provider: Daniele Oilvas, [address] [place] [address] [address] , [place], [address] . tel:[phone] [facility], [address], [place], [place], [address] , tel:[phone] [facility] Encounter for annual health examinationChr onic upper back painOSA (obstructive sleep apnea)Body mass index (BMI) 27.0-27.9, adult Oct- 8 Brendon Sanabria. [address] [place] [address], [address], [place], [place], [address], . tel:[phone] Referring Provider: Daniele Olivas, [address] [place] [address] [address], [place], [address] . tel:[phone] [facility], [address], [place], [place], [address] , tel:[phone] [facility] Chronic low back pain without sciatica, unspecified back pain lateralityOSA (obstructive sleep apnea)Influenz a vaccination declinedLipid screening 6 Brig[address] Poole. [address] [place] [address], [address], [place], [place], [address], . tel:[phone] Referring Provider: Daniele Olivas, [address] [place] [address] [address], [place], [address] . tel:[phone] [facility], [address], [place], [place], [address] , tel:[phone] [facility] BackacheBackac heHTNOpioid type dependence, unspecified useOpioid type dependence, unspecified use 4 Giancarlo Morales. [address] [facility], [address], [place], [place], [address]. tel:[phone] Referring Provider: Babak Dover, [address] [place], [address] . tel:[phone] [facility], [address], [place], [place], [address] , [place] tel:[phone] [facility] Unspecified essential hypertensionOt her and unspecified hyperlipidemia ABDMNAL PAIN RT UPR QUADNausea & vomitingUrine ketones 2 Brigittedwight Poole. [address] [facility], [address], [place], [place], [address], . tel:[phone] [facility], [address], [place], [place], [address] , tel: [phone] [facility] HYPERLIPIDEMIA NEC/NOSABNORMA L GLUCOSE NEC 8 No Information [facility], [address], [place], [place], [address] , tel: [phone] [facility] BENIGN HYPERTENSION [address], [address], [place], [place], [address], . tel:[phone] [facility], [address], [place], [place], [address] , tel: [phone] [facility] ABDMNAL PAIN RT UPR QUAD 8 No Information [facility], [address], [place], [place], [address] , tel: [phone] [facility] No Information 7 No Information [facility], [address], [place], [place], [address] , tel: [phone] [facility] RESPIRATORY ABNORM NEC 7 Brigitte Zulema. [address], [address], [place], [place], [address], . [phone] Family History Family Member Type Diagnosis Age At Onset Mother Problem (finding) chronic obstru ctive lung disease (Cause Of ) Immunizations Vaccine Date Status Comments J&J COVID/Adenovirus Vaccine [id number] viral particles/0.5mL [facility] Un[facility] Payers Payer name Insurance type Covered constitution party ID Authoriza tialan(s) [facility] ACCESS CHOICE BL [id number] Social History Type Description Quantity Date Captured [...] doing pretty well. He is , works part time, he does not smoke, drinks about 10 [...] in September 2020. He is , works part time. He does not smoke, he occasionally drinks alcohol. He was in ER at [place] 06/18 with abdominal pain. He states he [...] doing pretty well. He is , works part time, he does not smoke, drinks about 10 [...] in September 2020. He is , works part time. He does not smoke, he occasionally drinks alcohol. He was in ER at [facility] 06/18 with abdominal pain. He states he [...] had CT and lab in ER at [place] last night. Related to Non-intractable vomiting with [...] a preventive exam. He is , works part time. He does not smoke. He drinks 10 [...]
[2024-12-12 12:39] LABS: Add Urine Microscopic? YES; Appearance Urine Clear (Clear); Bacteria Urine None Seen /hpf; Bilirubin Urine Negative (Negative); Blood Urine Negative (Negative); Color Urine Yellow (Yellow); Glucose Urine UA Negative (Negative); Ketones Urine Trace mg/dL (Negative); Leukocyte Esterase Ur Negative LEU/UL (Negative); Nitrate Urine Negative (Negative); Non Pathogenic Casts 0-2; Protein Urine 1+ mg/dL (Negative); RBC Urine 0-2 /hpf (0-2); Squamous Epithelial Cell Urine None Seen /hpf (Few); WBC Urine 0-5 /hpf (0-3); pH Urine 7.5 (5.0-9.0)
--- NOTE | 2024-12-12 14:02 | ED_ITS ---
HPI - Nausea/Vomiting/Diarrhea General Chief complaint: Nausea/Vomiting/Diarrhea Stated complaint: N/V SINCE 0900 Time Seen by Provider: 12/12/24 12:11 Source: patient and old records reviewed Mode of arrival: ambulatory Limitations: no limitations History of Present Illness HPI Narrative: Patient is a 54-year-old male who presents the ED with report of nausea, vomiting. Patient reports he began having vomiting around 8-9 a.m. this morning. He has had multiple episodes of emesis. He notes history of similar episodes in the past, has been seen here for similar episodes. He states his symptoms have been attributed to his marijuana use in the past. He reports occasional marijuana use to help him sleep. He states he uses marijuana 3-4 times per week. He denies diarrhea or constipation. Does complain of upper abdominal pain, which he feels is from persistent vomiting. Denies fevers. Denies cough or cold symptoms. Denies bad food exposure, sick contacts. Related Data Allergies Allergy/AdvReac Type Severity Reaction Status Date / Time No Known Allergies Allergy Verified 12/12/24 10:28 Review of Systems 2 Review of Systems: All systems reviewed & are unremarkable except as noted in HPI. All systems reviewed & are unremarkable except as noted in HPI and below PMFSH Past Medical History Medical History Osteoarthritis Gout Surgical History Surgical History H/O arthroscopic knee surgery Social History Social History Smoking status: Former smoker Alcohol intake: never Substance use: never Living arrangements: with family Gender identity (if verbalized by the patient): Male Exam 2 Narrative: GENERAL: Mildly ill/uncomfortable appearing, well-nourished, non-toxic, in no acute distress. HEAD: Normocephalic, atraumatic. RESPIRATORY: Airway patent, respirations nonlabored. Clear to auscultation bilaterally, no rales, rhonchi, wheezing. CARDIOVASCULAR: Regular rate and rhythm without murmurs, rubs, or gallops. ABDOMINAL: Soft, mild tenderness palpation in epigastric region, nondistended. Normoactive BS. MUSCULOSKELETAL: Moves all extremities. No gross deformities. SKIN: Warm, dry, normal color. NEURO: A&O X3. Speech clear. PSYCHIATRIC: Appropriate mood and affect. Normal interaction. Course Vital Signs Vital signs: Vital Signs Temperature 97.6 F 12/12/24 10:29 Pulse Rate 70 12/12/24 10:29 Respiratory Rate 16 12/12/24 10:29 Blood Pressure 190/111 H 12/12/24 10:29 Pulse Oximetry 100 12/12/24 10:29 Oxygen Delivery Room Air 12/12/24 10:29 Temperature 98 F 12/12/24 14:40 Pulse Rate 80 12/12/24 14:40 Respiratory Rate 16 12/12/24 14:40 Blood Pressure 186/101 H 12/12/24 14:40 Pulse Oximetry 100 12/12/24 14:40 Oxygen Delivery Room Air 12/12/24 10:29 MDM - Nausea/Vomiting/Diarrhea MDM Narrative Medical decision making narrative: Patient presented to ED with nausea, vomiting, upper abdominal pain. Vital signs are stable upon arrival. Mildly hypertensive, likely related to vomiting/pain. Otherwise afebrile. In no acute distress upon my evaluation. Laboratory studies without leukocytosis or anemia. CMP with stable electrolytes. Stable kidney function. Normal LFTs and lipase. UA with trace ketones, no signs of infection. EKG with right bundle, no other concerning ST changes. Troponin undetectable. CT scan of abdomen/pelvis was obtained without acute findings. Does show hiatal hernia. Patient given fluids, morphine, Zofran, Pepcid. On re-evaluation, he is feeling much improved. Able to tolerate p.o. intake. Feel he is safe for discharge home at this time. Advised possibility of cyclic vomiting/cannabinoid hyperemesis. Advised to avoid further marijuana use. Will discharge with Bentyl and Zofran for home use. Given return precautions. Patient in agreement with plan. Discharged in stable condition. Patient was noted to be hypertensive here. He reports history of high blood pressure in the past when he was at a heavier weight. Advised close follow-up with PCP for further evaluation of this, advised to monitor blood pressures at home. He is otherwise asymptomatic regarding this. Feel this is safe for outpatient follow-up. Medical Records Attestation: I reviewed the patient's medical records. Lab Data Attestation: I reviewed the patient's lab results. 12/12/24 10:51 12/12/24 10:51 Labs: Lab Results 12/12/24 12/12/24 12/12/24 Range/Units 10:50 10:51 12:23 WBC 7.3 (4.5-10.0) K/mm3 RBC 5.27 (4.6-6.20) M/mm3 Hgb 16.0 (14.0-18.0) g/dL Hct 49.1 (42.0-52.0) % MCV 93.2 (80-100) fl MCH 30.4 (26-34) pg MCHC 32.6 (32-36) g/dl RDW 13.0 (11.5-14.5) % Plt Count 249 (150-375) k/mm3 MPV 10.4 (7.4-10.4) fl Immature Gran % (Auto) 0.7 H (0-0.5) % Neut % (Auto) 88.0 H (45.5-73.1) % Lymph % (Auto) 8.4 L (18.3-44.2) % [place] % (Auto) 2.7 (2.6-8.5) % Eos % (Auto) 0.1 (0-4.4) % Baso % (Auto) 0.1 L (0.2-1.2) % Lymph # (Auto) 0.61 L (0.9-3.2) K/mm3 [place] # (Auto) 0.2 (0.1-0.6) K/mm3 Eos # (Auto) 0.0 (0-0.3) K/mm3 Baso # (Auto) 0.0 (0.0-0.1) K/mm3 Abs Immat Gran (auto) 0.05 H (0.00-0.031) K/mm3 Absolute Neuts (auto) 6.4 (1.3-6.7) K/mm3 Absolute Nucleated RBC 0.000 (0.0-0.012) K/mm3 Nucleated RBC % 0.0 (0.0-0.2) % Sodium 139 (137-145) mmol/L Potassium 3.5 (3.4-5.0) mmol/L Chloride 101 (98-107) mmol/L Carbon Dioxide 26 (22-30) mmol/L Anion Gap 12 (4-12) mmol/L BUN 12 (9-20) mg/dL Creatinine 1.09 (0.7-1.3) mg/dL Estim Creat Clear Calc 75 ml/min Estimated GFR > 60 (59 - ) Glucose 157 H (65-110) mg/dL Calcium 8.6 (8.4-10.2) mg/dL Total Bilirubin 0.8 (0.2-1.3) mg/dL AST 36 (17-59) U/L ALT 35 (6-50) U/L Alkaline Phosphatase 142 H (38-126) U/L Troponin I < 0.012 (0.000-0.034) ng/mL Total Protein 8.0 (6.3-8.2) g/dL Albumin 4.9 (3.5-5.1) g/dL Lipase 51 (23-300) U/L Urine Color Yellow (Yellow) Urine Appearance Clear (Clear) Urine pH 7.5 (5.0-9.0) Ur Specific [place] 1.020 (1.001-1.035) Urine Protein 1+ H (Negative) mg/dL Urine Glucose (UA) Negative (Negative) mg/dL Urine Ketones Trace H (Negative) mg/dL Ur Blood (Man) Negative (Negative) Urine Nitrate Negative (Negative) Urine Bilirubin Negative (Negative) Urine Urobilinogen 1.0 (<2.0) mg/dL Leukocyte Esterase Rfl Negative (Negative) JULIAN/UL Urine RBC 0-2 (0-2) /hpf Urine WBC 0-5 (0-3) /hpf Ur Squamous Epith Cells None seen (Few) /hpf Urine Bacteria None seen /hpf Urine Casts 0-2 Imaging Data Attestation: I personally reviewed and interpreted this imaging study as follows: Radiologist's impression: ITS Impressions Abdomen/Pelvis CT 12/12/24 14:46 IMPRESSION: 1. No acute intra-abdominal/pelvic process. 2. Small sliding-type hiatal hernia. 2. Small fat-containing left inguinal hernia. ECG Data EKG #1: Attestation: I personally reviewed and interpreted this ECG as follows: ECG completion date: 12/12/24 ECG completion time: 10:52 EKG Interpretation: normal rate (63), sinus rhythm, non-specific ST changes and RBBB Discharge Plan Discharge Clinical Impression: History of marijuana use, Elevated blood pressure reading without diagnosis of hypertension Nausea and vomiting Qualifiers: Vomiting type: unspecified Qualified Code(s): R11.2 - Nausea with vomiting, unspecified Patient Disposition: Home Condition: Stable Instructions: Antibiotic Form, Dehydration (ED), Acute Nausea and Vomiting (ED), Cyclic Vomiting Syndrome (ED) Additional Instructions: Avoid further marijuana use as this is likely contributing to your nausea and vomiting. Recommend Tylenol, Pepcid, Bentyl as needed for further abdominal discomfort. Utilize zofran as needed for further nausea. Increase fluid intake. Recommend electrolyte rich fluids, gatorade, pedialyte, body armour. Recommend clear liquids or bland diet until symptoms improve, such as bananas, rice, applesauce, toast, or crackers. Follow-up with your primary care doctor for further evaluation. Your blood pressure was elevated here. You will need to follow-up with your doctor for this. Recommend monitoring blood pressure at home and keeping a recording of this. Return to the ED if you experience worsening or severe symptoms, unable to keep down food or drink, severe pain, fevers, rectal bleeding, vomiting blood, or any other symptoms of concern. Patient Language: Kazakh Prescriptions: New ondansetron 4 mg tablet,disintegrating 4 mg PO Q8H PRN (Reason: nausea and vomiting) Qty: 15 0RF dicyclomine 20 mg tablet 20 mg PO TID PRN (Reason: Abdominal Discomfort) Qty: 15 0RF No Action ondansetron 4 mg tablet,disintegrating 4 mg PO Q8H PRN (Reason: nausea and vomiting) Qty: 10 0RF tramadol 50 mg tablet 50 mg PO Q4H PRN (Reason: pain) Qty: 20 0RF ondansetron HCl [Zofran] 4 mg tablet 4 mg PO Q8H PRN (Reason: nausea and vomiting) Qty: 10 0RF famotidine [Pepcid AC] 20 mg tablet 20 mg PO DAILY Qty: 14 0RF dicyclomine 20 mg tablet 20 mg PO TID PRN (Reason: Abdominal cramping) Qty: 10 0RF ondansetron 4 mg tablet,disintegrating 4 mg PO Q6H PRN (Reason: nausea and vomiting) Qty: 10 0RF metoclopramide HCl [Reglan] 10 mg tablet 10 mg PO Q6H PRN (Reason: nausea and vomiting) Qty: 10 0RF metoclopramide HCl [Reglan] 10 mg tablet 10 mg PO Q6H PRN (Reason: nausea and vomiting) Qty: 20 0RF ondansetron 4 mg tablet,disintegrating 4 mg PO Q8H PRN (Reason: nausea and vomiting) Qty: 30 0RF Follow-up/Referrals: Brendon,Daniele Iryb MD [Primary Care Provider] - Time of Disposition: 16:09
[2024-12-12 14:40] VITALS: BP 186/101; PULSE 80; RESP 16; TEMP 36.6; O2SAT 100
[2024-12-12] MEDS: SODIUM CHLORIDE 0.9% IV 1,000 ML 999 ML IV CONT (14:41)
[2024-12-12] MEDS: ONDANSETRON INJ 4 MG/2 ML VIAL IV PUSH (14:42)
[2024-12-12] MEDS: FAMOTIDINE 20 MG/2 ML VIAL IV PUSH (14:43)
[2024-12-12] MEDS: MORPHINE SULFATE (*CRX) 4 MG/ML INJ IV PUSH (14:44)
[2024-12-12 14:52] LABS: Troponin I < 0.012 ng/mL (0.000-0.034)
== END 2024-12-12 16:29 | disposition home or self-care (01) ==
PROVIDERS: Emergency Medicine; Emergency Provider Physician Assistant; PCP Internal Medicine
DX: R11.2 Nausea with vomiting, unspecified (principal); R03.0 Elevated blood-pressure reading, without diagnosis of hypertension; F12.90 Cannabis use, unspecified, uncomplicated; M10.9 Gout, unspecified; M19.90 Unspecified osteoarthritis, unspecified site; Z87.891 Personal history of nicotine dependence; K44.9 Diaphragmatic hernia without obstruction or gangrene; K40.90 Unilateral inguinal hernia, without obstruction or gangrene, not specified as recurrent
CPT/HCPCS: 36415; 74177; 80053; 81001; 83690; 84484; 85025; 93005; 96361; 96374; 96375; 99284; J2270; J2405; J7030; Q9967